=== PATIENT | male | born 1995 | race Caucasian/White ===

== ENCOUNTER 2017-10-30 19:58 | Emergency (ER) | payer OTHER ==
[~2017-10-30] VITALS: Ht 203.2 cm; Wt 158.8 kg
[~2017-10-30 19:58] MED LIST: AMOXICILLIN500 MG PO; AUGMENTIN 500 M1 TAB PO; BENTYL10 MG PO; MOTRIN400 MG PO; MOTRIN800 MG PO; NKHM; PREDNICOT20 MG PO; ZANTAC150 MG PO; ZOFRAN ODT4 MG SL
[2017-10-30] MEDS ORDERED: NAPROSYN500 MG PO (20:22)
[2017-10-30] MEDS ORDERED: CEFDINIR300 MG PO (20:22)
== END 2017-10-30 20:26 | disposition home or self-care (01) ==
LOC: ED 19:58
DX: H60.501 Unspecified acute noninfective otitis externa, right ear (principal); R03.0 Elevated blood-pressure reading, without diagnosis of hypertension

== ENCOUNTER 2018-01-29 22:50 | Emergency (ER) | payer OTHER ==
[~2018-01-29] VITALS: Ht 203.2 cm; Wt 158.8 kg
[~2018-01-29 22:50] MED LIST changes: +CEFDINIR300 MG PO; +NAPROSYN500 MG PO
[2018-01-29 23:53] LABS: ALBUMIN 3.7 gm/dl (3.1-4.5); ALKALINE PHOSPHATASE 104 U/L (45-117); BUN 11 mg/dl (7-24); CHLORIDE 106 mmol/L (98-107); CREATININE 1.08 mg/dL (0.70-1.30); POTASSIUM 4.1 mmol/L (3.5-5.1); SGOT/AST 42 IU/L (3-35); SGPT/ALT 59 U/L (12-78); SODIUM 142 mmol/L (136-145)
== END 2018-01-30 01:19 | disposition home or self-care (01) ==
LOC: ED 22:50
PROVIDERS: Emergency Medicine
DX: R42 Dizziness and giddiness (principal); R11.10 Vomiting, unspecified; I10 Essential (primary) hypertension; Z79.899 Other long term (current) drug therapy

== ENCOUNTER 2018-04-13 09:01 | Emergency (ER) | payer OTHER ==
[~2018-04-13] VITALS: Ht 203.2 cm; Wt 134.7 kg
[2018-04-13] MEDS ORDERED: AMLODIPINE BESY10 MG PO (09:21)
[2018-04-13] MEDS ORDERED: LISINOPRIL5 MG PO (09:21)
[2018-04-13 10:09] LABS: BASO # 0.1 10*3/uL (0.0-0.1); BASO % 0.9 % (0.0-1.0); EOS # 0.2 10*3/uL (0.0-0.4); EOS % 2.4 % (1.0-4.0); HEMATOCRIT 40.1 % (42.0-52.0); HEMOGLOBIN 13.5 g/dl (14.0-18.0); LYMPH # 2.7 10*3/uL (1.3-4.4); LYMPH % 26.4 % (27.0-41.0); MEAN CORPUSCULAR HGB 26.9 pg (27.0-31.0); MEAN CORPUSCULAR HGB CONC 33.7 g/dl (33.0-37.0); MEAN PLATELET VOLUME 8.6 fl (9.6-12.3); MONO # 0.6 10*3/uL (0.1-1.0); MONO % 6.1 % (3.0-9.0); NEUT # 6.4 10*3/uL (2.3-7.9); NEUT % 63.6 % (47.0-73.0); PLATELET COUNT AUTOMATED 332 10*3/uL (130-400); RED BLOOD COUNT 5.01 10*6/uL (4.50-5.90); RED CELL DISTRI WIDTH 14.1 % (0-14.5); WHITE BLOOD COUNT 10.1 10*3/uL (4.8-10.8)
[2018-04-13 10:24] LABS: ALBUMIN 3.6 gm/dl (3.1-4.5); ALKALINE PHOSPHATASE 90 U/L (45-117); BUN 10 mg/dl (7-24); CHLORIDE 105 mmol/L (98-107); CREATININE 0.98 mg/dL (0.70-1.30); POTASSIUM 3.7 mmol/L (3.5-5.1); SGOT/AST 28 IU/L (3-35); SGPT/ALT 44 U/L (12-78); SODIUM 140 mmol/L (136-145); TOTAL PROTEIN 7.8 gm/dL (6.4-8.2)
== END 2018-04-13 12:05 | disposition home or self-care (01) ==
LOC: ED 09:01
PROVIDERS: Nurse Practitioner
DX: S06.0X9A Concussion with loss of consciousness of unspecified duration, initial encounter (principal); H53.8 Other visual disturbances; Z79.899 Other long term (current) drug therapy; W01.0XXA Fall on same level from slipping, tripping and stumbling without subsequent striking against object, initial encounter; Y93.89 Activity, other specified; Y92.89 Other specified places as the place of occurrence of the external cause; Y99.8 Other external cause status

== ENCOUNTER 2018-10-09 11:22 | Emergency (ER) | payer OTHER ==
[~2018-10-09 11:22] MED LIST changes: +AMLODIPINE BESY10 MG PO; +LISINOPRIL5 MG PO
[2018-10-09] MEDS ORDERED: PROVENTIL HFA6.7 GM INH (13:26)
[2018-10-09] MEDS ORDERED: VIBRAMYCIN100 MG PO (13:26)
[2018-10-09] MEDS ORDERED: Motrin,Rufen800 MG PO (13:39)
== END 2018-10-09 14:09 | disposition home or self-care (01) ==
LOC: ED 11:22
DX: S40.012A Contusion of left shoulder, initial encounter (principal); Z79.899 Other long term (current) drug therapy; V47.5XXA Car driver injured in collision with fixed or stationary object in traffic accident, initial encounter; Y93.I9 Activity, other involving external motion; Y92.89 Other specified places as the place of occurrence of the external cause; Y99.8 Other external cause status

== ENCOUNTER 2018-11-05 11:48 | Emergency (ER) | payer OTHER ==
[~2018-11-05] VITALS: Ht 182.8 cm; Wt 163.3 kg
--- NOTE | ~2018-11-05 | EKG ---
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
--- NOTE | ~2018-11-05 | EKG ---
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
[~2018-11-05 11:48] MED LIST changes: +Motrin,Rufen800 MG PO; +PROVENTIL HFA6.7 GM INH; +VIBRAMYCIN100 MG PO
[2018-11-05 12:29] LABS: BASO # 0.1 10*3/uL (0.0-0.1); BASO % 0.8 % (0.0-1.0); EOS # 0.3 10*3/uL (0.0-0.4); HEMATOCRIT 42.5 % (42.0-52.0); HEMOGLOBIN 14.6 g/dl (14.0-18.0); LYMPH # 3.3 10*3/uL (1.3-4.4); LYMPH % 24.9 % (27.0-41.0); MEAN CELL VOLUME 81.1 fl (80.0-94.0); MEAN CORPUSCULAR HGB 27.9 pg (27.0-31.0); MEAN CORPUSCULAR HGB CONC 34.4 g/dl (33.0-37.0); MEAN PLATELET VOLUME 8.6 fl (9.6-12.3); MONO # 0.9 10*3/uL (0.1-1.0); MONO % 6.6 % (3.0-9.0); NEUT # 8.6 10*3/uL (2.3-7.9); NEUT % 65.2 % (47.0-73.0); PLATELET COUNT AUTOMATED 423 10*3/uL (130-400); RED BLOOD COUNT 5.24 10*6/uL (4.50-5.90); RED CELL DISTRI WIDTH 13.3 % (0-14.5); WHITE BLOOD COUNT 13.2 10*3/uL (4.8-10.8)
[2018-11-05 12:38] LABS: ACT PARTIAL THROMBO TIME 24.2 SECONDS (20.8-31.5); INTERNATIONAL NORM RATIO 0.9 (2.0-3.5)
[2018-11-05 13:20] LABS: ALBUMIN 3.6 gm/dl (3.1-4.5); ALKALINE PHOSPHATASE 96 U/L (45-117); BUN 13 mg/dl (7-24); CHLORIDE 110 mmol/L (98-107); CREATININE 1.02 mg/dL (0.70-1.30); POTASSIUM 4.5 mmol/L (3.5-5.1); SGOT/AST 29 IU/L (3-35); SGPT/ALT 41 U/L (12-78); SODIUM 142 mmol/L (136-145)
[2018-11-05 13:28] LABS: TROPONIN I < 0.015 ng/ml (<0.045)
== END 2018-11-05 16:39 | disposition home or self-care (01) ==
LOC: ED 11:48
PROVIDERS: Emergency Medicine
DX: F41.0 Panic disorder [episodic paroxysmal anxiety] (principal); R10.9 Unspecified abdominal pain; F17.200 Nicotine dependence, unspecified, uncomplicated; Z79.899 Other long term (current) drug therapy

== ENCOUNTER 2018-11-16 14:58 | Emergency (ER) | payer OTHER ==
[~2018-11-16] VITALS: Ht 203.2 cm; Wt 170.1 kg
[2018-11-16 15:35] LABS: BASO # 0.1 10*3/uL (0.0-0.1); BASO % 0.7 % (0.0-1.0); EOS # 0.2 10*3/uL (0.0-0.4); EOS % 1.7 % (1.0-4.0); HEMATOCRIT 42.9 % (42.0-52.0); HEMOGLOBIN 14.3 g/dl (14.0-18.0); LYMPH # 2.8 10*3/uL (1.3-4.4); LYMPH % 20.3 % (27.0-41.0); MEAN CELL VOLUME 82.3 fl (80.0-94.0); MEAN CORPUSCULAR HGB 27.4 pg (27.0-31.0); MEAN CORPUSCULAR HGB CONC 33.3 g/dl (33.0-37.0); MEAN PLATELET VOLUME 8.7 fl (9.6-12.3); MONO # 0.7 10*3/uL (0.1-1.0); MONO % 5.2 % (3.0-9.0); NEUT # 9.8 10*3/uL (2.3-7.9); NEUT % 71.3 % (47.0-73.0); PLATELET COUNT AUTOMATED 400 10*3/uL (130-400); RED BLOOD COUNT 5.21 10*6/uL (4.50-5.90); RED CELL DISTRI WIDTH 13.5 % (0-14.5); WHITE BLOOD COUNT 13.7 10*3/uL (4.8-10.8)
[2018-11-16 15:45] LABS: URINE AMPHETAMINES < 1000 (1000ng/ml); URINE BARBITURATES < 200 (200ng/ml); URINE BENZODIAZEPINES < 200 (200ng/ml); URINE CANNABINOIDS (THC) > 50 (50ng/ml); URINE COCAINE < 300 (300ng/ml); URINE METHADONE < 300 (300ng/ml); URINE OPIATES < 300 (300ng/ml)
[2018-11-16 15:46] LABS: URINE PHENCYCLIDINE < 25 (25ng/ml)
[2018-11-16 15:49] LABS: ALBUMIN 3.7 gm/dl (3.1-4.5); ALKALINE PHOSPHATASE 94 U/L (45-117); BUN 8 mg/dl (7-24); CHLORIDE 107 mmol/L (98-107); CREATININE 0.91 mg/dL (0.70-1.30); POTASSIUM 3.9 mmol/L (3.5-5.1); SGOT/AST 15 IU/L (3-35); SGPT/ALT 42 U/L (12-78); SODIUM 137 mmol/L (136-145); TOTAL PROTEIN 8.2 gm/dL (6.4-8.2)
== END 2018-11-16 16:52 | disposition home or self-care (01) ==
LOC: ED 14:58
PROVIDERS: Internal Medicine
DX: R42 Dizziness and giddiness (principal); R68.89 Other general symptoms and signs; T43.225A Adverse effect of selective serotonin reuptake inhibitors, initial encounter; Z79.2 Long term (current) use of antibiotics; Y92.89 Other specified places as the place of occurrence of the external cause

== ENCOUNTER 2019-01-31 12:58 | Emergency (ER) | payer OTHER ==
[~2019-01-31] VITALS: Ht 203.2 cm; Wt 165.6 kg
== END 2019-01-31 16:30 | disposition home or self-care (01) ==
LOC: ED 12:58
DX: S29.9XXA Unspecified injury of thorax, initial encounter (principal); R20.2 Paresthesia of skin; R07.81 Pleurodynia; Z79.899 Other long term (current) drug therapy; X50.0XXA Overexertion from strenuous movement or load, initial encounter; Y93.89 Activity, other specified; Y92.098 Other place in other non-institutional residence as the place of occurrence of the external cause; Y99.8 Other external cause status

== ENCOUNTER 2019-05-25 04:30 | Emergency (ER) | payer OTHER ==
[~2019-05-25] VITALS: Ht 203.2 cm; Wt 188.2 kg
== END 2019-05-25 05:45 | disposition home or self-care (01) ==
LOC: ED 04:30
DX: H10.32 Unspecified acute conjunctivitis, left eye (principal); Z79.899 Other long term (current) drug therapy

== ENCOUNTER 2019-07-01 04:51 | Inpatient (IN) | payer OTHER ==
[~2019-07-01] VITALS: Ht 203.2 cm; Wt 177.6 kg
[2019-07-01] VITALS (14 sets, daily range): BP systolic 113–164; BP diastolic 58–653
--- NOTE | ~2019-07-01 | CON ---
[place], [place] REPORT OF CONSULTATION NAME: JEROD WHALEY UNIT #: [id number] ROOM: [facility] DOCTOR: FARIBA CAREY MD BIRTHDATE: [birth year] DOS: 07/02/2019 CHIEF COMPLAINT: "I don't know why I did such a stupid thing." HISTORY OF PRESENT ILLNESS: This is a 23-year-old white male with a lengthy history of major depression, who was admitted to the ICU following a suicide attempt. The patient stated that he woke up at 3:00 a.m. and felt that life was no longer worth living and he took a handful of lisinopril, amlodipine, and ibuprofen and then subsequently went to work. When he made it into the parking lot of work, he realized that he had done a stupid thing and was very fearful and fretful and induced himself to vomit approximately 6-7 times feeling lightheaded and dizzy. However, the patient reached out to his mother who arranged for EMS to take the patient to the hospital and subsequently the patient was admitted to the Intensive Care Unit. The patient endorses depression for approximately 2 years. He has only tried Zoloft and then only for 3 weeks, but it was ineffective. He also endorses using marijuana and states that the marijuana will curb his anxiety, which in turn helps his depression. He states that sleep and appetite can both vary to being either too good or too poor. He has periods of marked anergia, anhedonia, hopeless and helpless feelings. He currently denies suicidal ideation and states he is very much willing to get help. He has never seen a psychiatrist or counselor. MENTAL STATUS: He is alert and oriented. Mood does seem to be depressed. He does show an appropriate amount of remorse for his action. There is no hypomania or micha. There is no gross psychosis. Short, intermediate, and long-term memory are intact. DIAGNOSIS: Major depression, single episode, severe. PLAN: I am going to start him on Cymbalta, which should impact positively on his mood and his anxiety. I will also have him call the office Thursday to get an appointment with Cherry Reese. We can also work with getting him hooked up with a counselor as well. FARIBA CAREY MD CM:CONSTR:REPORT OF CONSULTATION 0927 07/02/19 1130 interface
--- NOTE | ~2019-07-01 | EKG ---
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
--- NOTE | 2019-07-01 05:20 | NUR ---
PHYSICIAN AT BEDSIDE.
--- NOTE | 2019-07-01 05:23 | NUR ---
SPOKE WITH POSION CONTROL AND ADVISED TO MONITOR FOR HYPOTENSION AND BRADYCARDIA. OBTAIN EKG, TYLENOLE, AND ASA LEVELS AND TREAT WITH IV FLUIDS ON PRESSORS FOR HYPOTENSION AND TREAT BRADYCARDIA PRN.
[2019-07-01 05:27] LABS: BILIRUBIN NEGATIVE (NEGATIVE); BLOOD TRACE-INTACT (NEGATIVE); CLARITY CLEAR (CLEAR); COLOR YELLOW (YELLOW); GLUCOSE NEGATIVE (NEGATIVE); KETONE NEGATIVE (NEGATIVE); LEUKO ESTERASE NEGATIVE (NEGATIVE); NITRITE NEGATIVE (NEGATIVE); SPECIFIC GRAVITY >= 1.030 (1.005-1.030); UROBILINOGEN 0.2 E.U./dl (0.2-1.0)
[2019-07-01 05:34] LABS: BACTERIA 2+; MUCOUS 1+; RBC 0-2 rbc/hpf (0-2)
[2019-07-01 05:36] LABS: URINE AMPHETAMINES < 1000 (1000ng/ml); URINE BARBITURATES < 200 (200ng/ml); URINE BENZODIAZEPINES < 200 (200ng/ml); URINE CANNABINOIDS (THC) > 50 (50ng/ml); URINE COCAINE < 300 (300ng/ml); URINE METHADONE < 300 (300ng/ml); URINE OPIATES < 300 (300ng/ml)
[2019-07-01 05:41] LABS: URINE PHENCYCLIDINE < 25 (25ng/ml)
[2019-07-01 05:44] LABS: BASO # 0.1 10*3/uL (0.0-0.1); BASO % 0.7 % (0.0-1.0); EOS # 0.3 10*3/uL (0.0-0.4); EOS % 2.8 % (1.0-4.0); HEMATOCRIT 42.6 % (42.0-52.0); HEMOGLOBIN 13.7 g/dl (14.0-18.0); LYMPH # 2.5 10*3/uL (1.3-4.4); LYMPH % 23.4 % (27.0-41.0); MEAN CELL VOLUME 82.2 fl (80.0-94.0); MEAN CORPUSCULAR HGB 26.4 pg (27.0-31.0); MEAN CORPUSCULAR HGB CONC 32.2 g/dl (33.0-37.0); MEAN PLATELET VOLUME 8.7 fl (9.6-12.3); MONO # 0.7 10*3/uL (0.1-1.0); MONO % 6.1 % (3.0-9.0); NEUT # 7.1 10*3/uL (2.3-7.9); NEUT % 66.2 % (47.0-73.0); PLATELET COUNT AUTOMATED 347 10*3/uL (130-400); RED BLOOD COUNT 5.18 10*6/uL (4.50-5.90); RED CELL DISTRI WIDTH 13.9 % (0-14.5); WHITE BLOOD COUNT 10.7 10*3/uL (4.8-10.8)
[2019-07-01 05:59] LABS: ALBUMIN 3.5 gm/dl (3.1-4.5); ALKALINE PHOSPHATASE 87 U/L (45-117); BUN 11 mg/dl (7-24); CHLORIDE 109 mmol/L (98-107); CREATININE 0.95 mg/dL (0.70-1.30); POTASSIUM 3.7 mmol/L (3.5-5.1); SGOT/AST 8 IU/L (3-35); SGPT/ALT 45 U/L (12-78); SODIUM 139 mmol/L (136-145); TOTAL PROTEIN 7.7 gm/dL (6.4-8.2)
[2019-07-01 06:01] LABS: ACETAMINOPHEN (TYLENOL) < 5.0 ug/ml (10-30); ETHYL ALCOHOL < 3.0 mg/dl (<3); TROPONIN I < 0.015 ng/ml (<0.045)
--- NOTE | 2019-07-01 06:05 | NUR ---
SITTING UP IN BED AND IS MORE RELAXED. 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 BELONGINGS INCLUDING THESE ITEMS AND AOME OF HIS CLOTHES COLLECTED BY FAMILY.
--- NOTE | 2019-07-01 06:47 | NUR ---
ACTIVE SURVEILLANCE SWAB SENT TO THE LAB.
--- NOTE | 2019-07-01 07:02 | NUR ---
NURSE TO NURSE GIVEN.
--- NOTE | 2019-07-01 08:00 | NUR ---
A 23, admitted to ICCU, under the services of ANNETTE Penny DO with a diagnosis of DRUG OVERDOSE. Chief complaint is SUICIDE ATTEMPT. Patient arrived via wheel chair from ER. Monitor applied. Initial assessment completed. Vital signs taken and recorded. ANNETTE PENNY DO notified of admission to the unit. Orders received. See assessment for past medical history, medications and allergies. Patient and/or family oriented to unit. [facility] visitation policy reviewed. Clothing/patient valuable form completed. JOSE WEST
--- NOTE | 2019-07-01 10:27 | NUR ---
DR HOOVER IN TO SEE PT EARLIER.
--- NOTE | 2019-07-01 12:37 | NUR ---
POISON CONTROL CALLED R/T PT. UPDATED THEM ON PT'S CONDITION AND PLAN OF CARE. THEY ARE GOING TO CALL BACK LATER TO CHECK ON PT.
--- NOTE | 2019-07-01 15:28 | NUR ---
DONNIE MERAZ, SOCIAL SERVICE, IN TO SEE PT. SHE GAVE PT A PRINTOUT OF THERAPY CENTERS. SHE STATED PT IS OK FOR DISCHARGE TO HOME WHEN MEDICALLY STABLE.
--- NOTE | 2019-07-01 15:29 | NUR ---
met with client to assess for suicide risk, client is pleasant, cooperative, tearful. he reports to me his story, he said that this am he decided he could not take it anymore and took 3 handfulls of pills, drove to work at [employer] and then when he got to the parking lot, he realized he did not want to , so he said he called his mom and he made himself vomit 5-7x, he said that he has anxiety and racing thoughts, client reports that he went to college at [employer] on a football scholarship and then he decided after one year he just wanted to go to school and not play football, he quit and they did not tell him that he would then lose all of his scholarships, when he tried to reenter in the fall they told him he owed 47,000 dollars and now they wont release his transcripts to go anywhere else, he is very distressed by this and feels he made stupid decisions, he then got a job in the [employer] and he got an apt that became infested with bed bugs, so he had to throw all of his clothes away and he called his work to tell them that he could not come and they fired him, he now has another job, but he keeps ruminating about the choices he made. he denies suicidal ideation, stated that he does not want to live, he reports that he does get very anxious. explored with client that he could benefit from therapy and he agreed, he said he tries some meds from his pcp but did not like it, i did give client a resource list, he is not a present risk for self harm.
--- NOTE | 2019-07-01 17:20 | NUR ---
DR HOOVER UPDATED ON POISON CONTROL AND DONNIE MERAZ'S SUGGESTIONS. ORDER RECEIVED TO TRANSFER PT TO [facility]. AGRONOMY RESEARCH MANAGER AWARE.
[2019-07-02] VITALS: BP 151/82
[2019-07-02 04:00] VITALS: BP 107/69
[2019-07-02 06:34] LABS: BASO # 0.1 10*3/uL (0.0-0.1); BASO % 0.8 % (0.0-1.0); EOS # 0.4 10*3/uL (0.0-0.4); EOS % 3.2 % (1.0-4.0); HEMATOCRIT 41.2 % (42.0-52.0); HEMOGLOBIN 13.3 g/dl (14.0-18.0); LYMPH # 2.6 10*3/uL (1.3-4.4); LYMPH % 22.8 % (27.0-41.0); MEAN CELL VOLUME 82.7 fl (80.0-94.0); MEAN CORPUSCULAR HGB 26.7 pg (27.0-31.0); MEAN CORPUSCULAR HGB CONC 32.3 g/dl (33.0-37.0); MEAN PLATELET VOLUME 8.6 fl (9.6-12.3); MONO # 0.7 10*3/uL (0.1-1.0); MONO % 6.4 % (3.0-9.0); NEUT # 7.5 10*3/uL (2.3-7.9); NEUT % 65.9 % (47.0-73.0); PLATELET COUNT AUTOMATED 332 10*3/uL (130-400); RED BLOOD COUNT 4.98 10*6/uL (4.50-5.90); RED CELL DISTRI WIDTH 14.1 % (0-14.5); WHITE BLOOD COUNT 11.4 10*3/uL (4.8-10.8)
[2019-07-02 06:46] LABS: ALBUMIN 3.4 gm/dl (3.1-4.5); ALKALINE PHOSPHATASE 81 U/L (45-117); BUN 8 mg/dl (7-24); CHLORIDE 110 mmol/L (98-107); CREATININE 0.87 mg/dL (0.70-1.30); FREE T4 1.07 ng/dl (0.76-1.46); SGOT/AST 18 IU/L (3-35); SGPT/ALT 41 U/L (12-78); SODIUM 142 mmol/L (136-145); TOTAL PROTEIN 7.3 gm/dL (6.4-8.2)
--- NOTE | 2019-07-02 07:27 | NUR ---
Shift chart check completed.
[2019-07-02 07:44] LABS: ACT PARTIAL THROMBO TIME 25.8 SECONDS (20.0-32.1); INTERNATIONAL NORM RATIO 0.9 (2.0-3.5)
[2019-07-02 07:50] LABS: VITAMIN D, 25-HYDROXY 21.3 ng/mL (30-100)
[2019-07-02 08:00] VITALS: BP 115/79
--- NOTE | 2019-07-02 08:35 | NUR ---
DR BELLAMY CAME TO SEE PATIENT. [facility] CALLED TO REMIND THEM OF CONSULT.
--- NOTE | 2019-07-02 08:44 | NUR ---
CONSULT FOR DR CAREY PLACED HE CANNOT SEE THE PATIENT UNLESS HE IS SPECIFICALLY CONSULTED A GENERAL U CONSULT DOESN'T ALLOW HIM TO SEE THE PATIENT. DR MO HERE AND AWARE
--- NOTE | 2019-07-02 09:21 | NUR ---
DR CAREY HERE - OK TO DISCHARGE WHEN MEDICALLY STABLE & THEN TO FOLLOW UP WITH [facility] NEXT WEEK WITH FRANKLIN ACKERMAN - SCRIPT FOR CYMBALTA RECEIVED. DR HOOVER SPOKE WITH DR CAREY
--- NOTE | 2019-07-02 09:27 | NUR ---
POISON CONTROL CALLED AND SPOKE WITH RENUKA. PATIENT IS CLEAR FROM THEIR SIDE & OK TO GO. DR HOOVER HERE AND AWARE
[2019-07-02] MEDS ORDERED: AMLODIPINE BESY10 MG PO (11:17)
[2019-07-02] MEDS ORDERED: LISINOPRIL5 MG PO (11:17)
[2019-07-02] MEDS ORDERED: DULOXETINE HCL30 MG PO (11:17)
--- NOTE | 2019-07-02 11:33 | NUR ---
Hep Lock discontinued. Site asymptomatic. Pressure applied. Sterile dressing applied. Discharge instructions reviewed with patient/family. Patient receptive and verbalizes understanding. Follow-up care arranged. Written instructions given to patient/family. PATIENT [id number] OUT SHANTI MARCUS
== END 2019-07-02 11:30 | disposition home or self-care (01) | DRG 918 ==
LOC: ED 04:51 → EDHOLD 06:37 → ICCU 07:47
PROVIDERS: Internal Medicine; Student in an Organized Health Care Education/Training Program; ADMIT Internal Medicine
PROC: 5A09357 Assistance with Respiratory Ventilation, Less than 24 Consecutive Hours, Continuous Positive Airway Pressure (ICD-10-PCS; principal; 2019-07-02)
DX: T46.4X2A Poisoning by angiotensin-converting-enzyme inhibitors, intentional self-harm, initial encounter (principal); F32.2 Major depressive disorder, single episode, severe without psychotic features; Z68.41 Body mass index [BMI] 40.0-44.9, adult; T46.1X2A Poisoning by calcium-channel blockers, intentional self-harm, initial encounter; T39.312A Poisoning by propionic acid derivatives, intentional self-harm, initial encounter; I10 Essential (primary) hypertension; G47.33 Obstructive sleep apnea (adult) (pediatric); T14.91XA Suicide attempt, initial encounter; E66.01 Morbid (severe) obesity due to excess calories; F17.210 Nicotine dependence, cigarettes, uncomplicated; D64.9 Anemia, unspecified; R73.9 Hyperglycemia, unspecified; R80.9 Proteinuria, unspecified; R31.9 Hematuria, unspecified; R00.1 Bradycardia, unspecified; F41.9 Anxiety disorder, unspecified; I95.9 Hypotension, unspecified; Y92.89 Other specified places as the place of occurrence of the external cause; Z79.899 Other long term (current) drug therapy; Z82.49 Family history of ischemic heart disease and other diseases of the circulatory system; Z83.3 Family history of diabetes mellitus; Z71.6 Tobacco abuse counseling

== ENCOUNTER 2020-04-19 14:32 | Emergency (ER) | payer OTHER ==
[~2020-04-19 14:32] MED LIST changes: +DULOXETINE HCL30 MG PO
[2020-04-19 15:55] LABS: BASO # 0.1 10*3/uL (0.0-0.1); BASO % 0.6 % (0.0-1.0); EOS # 0.2 10*3/uL (0.0-0.4); EOS % 1.7 % (1.0-4.0); LYMPH # 2.2 10*3/uL (1.3-4.4); LYMPH % 17.5 % (27.0-41.0); MEAN CELL VOLUME 80.4 fl (80.0-94.0); MEAN CORPUSCULAR HGB CONC 34.9 g/dl (33.0-37.0); MEAN PLATELET VOLUME 9.2 fl (9.6-12.3); MONO # 0.6 10*3/uL (0.1-1.0); NEUT # 9.5 10*3/uL (2.3-7.9); NEUT % 74.6 % (47.0-73.0); PLATELET COUNT AUTOMATED 353 10*3/uL (130-400); RED BLOOD COUNT 4.85 10*6/uL (4.50-5.90); RED CELL DISTRI WIDTH 13.2 % (0-14.5); WHITE BLOOD COUNT 12.7 10*3/uL (4.8-10.8)
[2020-04-19 16:28] LABS: ALBUMIN 3.2 gm/dl (3.1-4.5); ALKALINE PHOSPHATASE 132 U/L (45-117); BUN 12 mg/dl (7-24); CHLORIDE 103 mmol/L (98-107); CREATININE 1.28 mg/dL (0.70-1.30); POTASSIUM 3.9 mmol/L (3.5-5.1); SGOT/AST 38 IU/L (3-35); SGPT/ALT 50 U/L (12-78); SODIUM 136 mmol/L (136-145); TOTAL PROTEIN 8.1 gm/dL (6.4-8.2)
[2020-04-19] MEDS ORDERED: CORTISPORIN SUS10 ML OT (18:59)
[2020-04-19] MEDS ORDERED: CIPRO500 MG PO (18:59)
== END 2020-04-19 19:45 | disposition home or self-care (01) ==
LOC: ED 14:32
PROVIDERS: Nurse Practitioner Family
DX: H60.91 Unspecified otitis externa, right ear (principal); R73.9 Hyperglycemia, unspecified; I10 Essential (primary) hypertension

== ENCOUNTER 2020-05-24 10:17 | Inpatient (IN) | payer OTHER ==
[~2020-05-24] VITALS: Ht 203.2 cm; Wt 172.0 kg
[~2020-05-24 10:17] MED LIST changes: +CIPRO500 MG PO; +CORTISPORIN SUS10 ML OT
[2020-05-24 10:22] VITALS: BP 160/104
--- NOTE | 2020-05-24 11:10 | NUR ---
PT. HAS AN ABRASION ON RIGHT CONRAD.
[2020-05-24 11:19] LABS: BACTERIA TRACE; BILIRUBIN NEGATIVE (NEGATIVE); BLOOD 2+ (NEGATIVE); CLARITY SL CLOUDY (CLEAR); COLOR YELLOW (YELLOW); GLUCOSE 3+ (NEGATIVE); KETONE 3+ (NEGATIVE); LEUKO ESTERASE NEGATIVE (NEGATIVE); NITRITE NEGATIVE (NEGATIVE); UROBILINOGEN 0.2 E.U./dl (0.2-1.0)
[2020-05-24 11:20] LABS: HEMATOCRIT 39.8 % (42.0-52.0); MEAN CELL VOLUME 79.3 fl (80.0-94.0); MEAN PLATELET VOLUME 9.7 fl (9.6-12.3); PLATELET COUNT AUTOMATED 348 10*3/uL (130-400); RED BLOOD COUNT 5.02 10*6/uL (4.50-5.90); RED CELL DISTRI WIDTH 13.8 % (0-14.5); WHITE BLOOD COUNT 11.3 10*3/uL (4.8-10.8)
[2020-05-24 11:32] LABS: ALBUMIN 3.5 gm/dl (3.1-4.5); ALKALINE PHOSPHATASE 144 U/L (45-117); BUN 15 mg/dl (7-24); CHLORIDE 101 mmol/L (98-107); CREATININE 1.01 mg/dL (0.70-1.30); SGOT/AST 21 IU/L (3-35); SGPT/ALT 43 U/L (12-78); SODIUM 136 mmol/L (136-145)
--- NOTE | 2020-05-24 11:32 | NUR ---
PT. STATED PAIN WAS RELIEVED WITH DILAUDID.
[2020-05-24 11:33] LABS: LIPASE 858 U/L (73-393)
[2020-05-24 11:43] LABS: MEAN CORPUSCULAR HGB 26.3 pg (27.0-31.0); MEAN CORPUSCULAR HGB CONC 33.2 g/dl (33.0-37.0)
[2020-05-24 11:44] LABS: MICROCYTOSIS SLIGHT; PLATELET SUFFICIENCY NORMAL (NORMAL); TOTAL CELLS COUNTED 100 #CELLS
[2020-05-24 12:17] VITALS: BP 159/94
[2020-05-24 12:30] VITALS: BP 148/85
--- NOTE | 2020-05-24 12:30 | NUR ---
Time: 0 A 24 year old MALE admitted to 5E under services of IVETT BONE DO. Pt. arrived via wheel chair from ER. Chief complaint: ABDOMINAL PAIN. ABRASION TO RIGHT CONRAD. MEASUREMENTS AND PICTURES TAKEN. BETHANY TURCIOS
--- NOTE | 2020-05-24 13:03 | NUR ---
DR BELLAMY NOTIFIED OF UPDATED MED REC.
--- NOTE | 2020-05-24 13:37 | NUR ---
SPOKE WITH DR BELLAMY ABOUT PATIENTS BLOOD GLUCOSE OF 400 WITHOUT INTERVENTION. STATES HE IS PUTTING IN ORDERS AT THIS TIME.
--- NOTE | 2020-05-24 14:08 | NUR ---
MORPHINE ADMINISTERED FOR PT C/O 09/08 ABDOMINAL PAIN. PT STATING THAT THE PAIN IS IN THE EPIGASTRIC REGION AND IS "CRAMPING, AND PULSATING". WILL CONTINUE TO MONITOR AND REASSESS.
--- NOTE | 2020-05-24 14:35 | NUR ---
PT STATES THE MORPHINE DID HELP RELIEVE SOME PAIN BUT IT IS STILL PRESENT. WILL CONTINUE TO MONITOR.
--- NOTE | 2020-05-24 15:42 | NUR ---
SPOKE WITH DR BELLAMY REGARDING PATIENTS WORSENING ABDOMINAL PAIN. PT STATES IT IS NOW "IN ALL FOUR QUADRANTS AND RADIATING TO HIS BACK". MORPHINE ADMINISTERED AT 1408, NOT DUE AT THIS TIME. AWAITING NEW ORDERS.
--- NOTE | 2020-05-24 15:54 | NUR ---
DIALUDID ADMINISTERED FOR PT C/O 09/08 ABDOMINAL PAIN THAT RADIATES TO THE CENTER OF HIS BACK. THRASHING IN BED, STATES THAT THE PAIN IS "REALLY BAD". WILL REASSESS AND CONTINUE TO MONITOR.
[2020-05-24 16:00] VITALS: BP 158/91
--- NOTE | 2020-05-24 16:19 | NUR ---
PATIENT SITTING ON THE SIDE OF THE BED. APPEARS MORE COMFORTABLE. STATES THE DILAUDID WAS EFFECTIVE. WILL MONITOR.
--- NOTE | 2020-05-24 17:45 | NUR ---
DILAUDID ADMINISTERED FOR PT C/O GENERALIZED ABDOMINAL PAIN THAT RADIATES TO HIS BACK. PT DESCRIBES IT "SHARP, STABBING" LIKE PAIN. WILL CONTINUE TO MONITOR AND REASSESS.
--- NOTE | 2020-05-24 18:19 | NUR ---
PT APPEARS MORE RELAXED. STATES THAT THE DILAUDID IS EFFECTIVE BUT PAIN RETURNS AFTER A COUPLE HOURS AND IS INTENSE IT WAS PRIOR TO RECEIVING IT. WILL CONTINUE TO MONITOR.
--- NOTE | 2020-05-24 18:20 | NUR ---
SPOKE TO DR BELLAMY, PTS MOM WOULD LIKE TO SPEAK WITH SOMEONE REGARDING POC. DR BELLAMY UP TO FLOOR AT THIS TIME AND IN PT ROOM.
[2020-05-24 20:00] VITALS: BP 128/76
--- NOTE | 2020-05-24 20:36 | NUR ---
24 HR chart check completed.
--- NOTE | 2020-05-24 20:56 | NUR ---
PATIENT DRAMATICALLY HOLDING ABD AND BREATHING HEAVILY. RESPIRATIONS EASY. LUNGS DIMINISHED, CLEAR. PULSE OX 96% RA. ABD SOFTLY OBESE WITH NORMO BOWEL SOUNDS. REQUESTED AND RECEIVED DILAUDID IV PER PRN ORDER FOR COMPLAINTS OF EPIGASTRIC PAIN RATING AN 8. IV FLUIDS MAINTAINED. CALL LIGHT WITHIN REACH. WILL MONITOR
--- NOTE | 2020-05-24 21:30 | NUR ---
MEDS EFFECTIVE. TALKING ON PHONE, NO DISTRESS NOTED. NO FURTHER VOICED COMPLAINTS
[2020-05-25] VITALS: BP 152/79
--- NOTE | 2020-05-25 00:36 | NUR ---
AGAIN DRAMATIC, C/O ABD PAIN RATING AN 8. MEDICATED WITH DILAUDID IV PER PRN ORDER. CALL LIGHT WITHIN REACH. WILL MONITOR FOR EFFECTIVENESS
--- NOTE | 2020-05-25 01:00 | NUR ---
MEDS APPEAR EFFECTIVE. SLEEPING WITH C-PAP IN USE. CALL LIGHT WITHIN REACH. IV FLUIDS MAINTAINED
--- NOTE | 2020-05-25 04:04 | NUR ---
AWAKENS, C/O EPIGASTRIC PAIN RATING AN 8. MEDICATED WITH DILAUDID IV PER PRN ORDER. WILL MONITOR
--- NOTE | 2020-05-25 05:00 | NUR ---
MEDS EFFECTIVE. SLEEPING.
[2020-05-25] MEDS ORDERED: LISINOPRIL20 MG PO (05:28)
[2020-05-25 06:28] LABS: HEMATOCRIT 37.9 % (42.0-52.0); MEAN PLATELET VOLUME 9.5 fl (9.6-12.3); PLATELET COUNT AUTOMATED 285 10*3/uL (130-400); RED BLOOD COUNT 4.68 10*6/uL (4.50-5.90); RED CELL DISTRI WIDTH 14.1 % (0-14.5); WHITE BLOOD COUNT 14.1 10*3/uL (4.8-10.8)
[2020-05-25 06:48] LABS: HDL CHOLESTEROL 25 mg/dl (40-60); TRIGLYCERIDES 967 mg/dl (<150)
--- NOTE | 2020-05-25 07:24 | NUR ---
JEROD WHALEY [id number] Please refer to the physician's history and physical for past medical history, comorbid conditions, and allergies. Diagnosis: DIABETES MELLITUS WITH HYPERGLYCEMIA PANCREATITIS Xavier Score: 22,LOW OR NO RISK WOUND DESCRIPTIONS: Wound Number: 1 Location of the wound: right anterior saldana medial Type of wound: abrasion Thickness: Partial Size: 2.5cm x 1.8cm x <0.1cm Tunneling: none Undermining: none Sinus Tract: none Presence of Exudate: none Amount: None Color: Red, brown Odor: None Periwound Skin Appearance: Normal Wound edges: approximated Pain (associated with wound): none at time of assessment How does patient state this happened? pt states he fell off the pool ladder about 3 days ago Wound Number: 2 Location of the wound: right anterior saldana lateral Type of wound: abrasion Thickness: Partial Size: 0.5cm x 0.6cm x <0.1cm Tunneling: none Undermining: none Sinus Tract: none Presence of Exudate: none Amount: None Color: Red, brown Odor: None Periwound Skin Appearance: Normal Wound edges: approximated Pain (associated with wound): none at time of assessment How does patient state this happened? pt states he fell off the [employer] ladder about 3 days ago Surface the patient is resting on: Position Pro SKIN PREVENTION RECOMMENDATION: 1. Pressure redistribution support surface as appropriate 2. Elevate heels 3. Remove boots/TEDS every shift and reapply 4. Head of bed 30 degrees as tolerated 5. Assess nutrition and hydration 6. Manage moisture 7. Avoid the use of containment devices while in bed 8. Use absorptive products on surfaces limit layers of linens on bed 9. Turn and reposition every 1-2 hours in bed and every 1 hour in chair as tolerated 10. Weight shifts every 15 minutes while up in chair 11. Offloading with pillows or device to keep heels elevated off bed 12. Monitor skin at least every shift 13. Inspect under medical devices twice a day WOUND TREATMENT RECOMMENDATIONS: Partial thickness guidelines: Cleanse right saldana medial and right saldana lateral with nss and apply sureprep around the wound hydrogel to wound bed and cover with optifoam gentle every 2 days and prn for soiling. Patient states he will care for this area upon his return home and doesn't wish to follow up in an outpatient setting at this time.
[2020-05-25 07:25] LABS: MEAN CORPUSCULAR HGB 26.5 pg (27.0-31.0); MEAN CORPUSCULAR HGB CONC 32.7 g/dl (33.0-37.0)
--- NOTE | 2020-05-25 07:30 | NUR ---
JEROD WHALEY [id number] Please refer to the physician's history and physical for past medical history, comorbid conditions, and allergies. Diagnosis: DIABETES MELLITUS WITH HYPERGLYCEMIA PANCREATITIS Xavier Score: 22,LOW OR NO RISK WOUND DESCRIPTIONS: Wound Number: 1 Location of the wound: right saldana medial aspect Type of wound: abrasion Thickness: Partial Size: 2.5cm x 1.8cm x 0.1cm Tunneling: none Undermining: none Sinus Tract: none Presence of Exudate: none Amount: None Color: Red, brown Odor: None Periwound Skin Appearance: Normal Wound edges: approximated Pain (associated with wound): none at time of assessment How does patient state this happened? pt states he fell off pool ladder three days ago Wound Number: 2 Location of the wound: right saldana lateral aspect Type of wound: abrasion Thickness: Partial Size: 0.5cm x 0.6cm x <0.1cm Tunneling: none Undermining: none Sinus Tract: none Presence of Exudate: none Amount: None Color: Red, brown Odor: None Periwound Skin Appearance: Normal Wound edges: approximated Pain (associated with wound): none at time of assessment How does patient state this happened? pt states he fell off [employer] three days ago Surface the patient is resting on: Position Pro SKIN PREVENTION RECOMMENDATION: 1. Pressure redistribution support surface as appropriate 2. Elevate heels 3. Remove boots/TEDS every shift and reapply 4. Head of bed 30 degrees as tolerated 5. Assess nutrition and hydration 6. Manage moisture 7. Avoid the use of containment devices while in bed 8. Use absorptive products on surfaces limit layers of linens on bed 9. Turn and reposition every 1-2 hours in bed and every 1 hour in chair as tolerated 10. Weight shifts every 15 minutes while up in chair 11. Offloading with pillows or device to keep heels elevated off bed 12. Monitor skin at least every shift 13. Inspect under medical devices twice a day WOUND TREATMENT RECOMMENDATIONS: Partial thickness guidelines: Cleanse right saldana medial, right saldana lateral with nss and apply sureprep around the wound hydrogel to wound bed and cover with optifoam gentle every 2 days and prn for soiling. Patient states he will take care of these area when he is discharged and doesn't wish to follow up in an outpatient setting at this time.
[2020-05-25 07:34] LABS: PLATELET SUFFICIENCY NORMAL (NORMAL); TOTAL CELLS COUNTED 100 #CELLS
--- NOTE | 2020-05-25 07:53 | NUR ---
Dr. Maciel notified of wound care recommendations.
[2020-05-25 07:54] LABS: ALBUMIN 2.9 gm/dl (3.1-4.5); ALKALINE PHOSPHATASE 117 U/L (45-117); BUN 8 mg/dl (7-24); CHLORIDE 103 mmol/L (98-107); SGOT/AST 16 IU/L (3-35); SGPT/ALT 31 U/L (12-78); SODIUM 137 mmol/L (136-145); TOTAL PROTEIN 7.9 gm/dL (6.4-8.2)
[2020-05-25 07:55] LABS: LIPASE 1531 U/L (73-393)
[2020-05-25 07:57] LABS: CHOLESTEROL 106 mg/dL (<200)
[2020-05-25 08:00] VITALS: BP 135/66
--- NOTE | 2020-05-25 09:00 | NUR ---
Adaptive Physical Educator in to talk to patient. Patient states lives at home with family. There are 3 steps in the home. Physician: uli cuevas Pharmacy: [facility] health services: none Patient's level of ADLs: INDEPENDENT Patient has working utilities: all working DME: none Follow-up physician's appointment after d/c: will be made by hospitalist nurse director upon discharge Does patient want to access PORTAL?: no Discharge plan discussed with patient, he lives at home with family, he is independent in adls and ambulation, works, drives, he states he will return home with discharged and denies any home needs, case management will follow. he states family will transport him home when discharged. BRIGETTE MANNING
[2020-05-25 12:00] VITALS: BP 157/92
--- NOTE | 2020-05-25 13:28 | NUR ---
PATIENT C/O 10 OUT OF [address] BELLAMY ORDERRED TO GIVE NORCO ALONG WITH DILAUDID (PER ORDER) PT COMPLAIN OF WORSE ABD PAIN AFTER NORCO. HE STATES HE WILL CONTINUE WITH THE DILAUDID. WHICH PROVIDES COMFOR FOR APPROX 1 HOUR AFTER PERSCRIBED DOSE.
--- NOTE | 2020-05-25 14:34 | NUR ---
MEDICATED WITH DILAUDID 1MG IV FOR COMPLAINTS OF LEFT SIDED ABDOMINAL PAIN. RATES PAIN A 10 ON A PAIN SCALE OF 1-10
[2020-05-25 16:00] VITALS: BP 144/76
--- NOTE | 2020-05-25 19:00 | NUR ---
ASSUMED CARE FOR THIS PT AT THIS TIME. C/O MID EPIGASTRIC PAIN 04/08. BS X4 HYPO. PT TEACHING GIVEN ON PRN DILAUDID TIMES. CALL LIGHT IN REACH.
[2020-05-25 20:00] VITALS: BP 141/67
--- NOTE | 2020-05-25 21:42 | NUR ---
PT AWOKEN FOR INSULIN. PT C/O MID EPIGASTRIC PAIN 05/09. MEDICATED W/IVP DILAUDID. PT SNORING DURING ADMINISTRATION. WILL MONITOR FOR EFFECTIVENESS. CALL LIGHT IN REACH.
--- NOTE | 2020-05-25 22:40 | NUR ---
PT RESTING QUIETLY IN BED W/EYES CLOSED. NO S/S OF DISTRESS NOTED. PRN DILAUDID EFFECTIVE FOR PAIN RELIEF.
--- NOTE | 2020-05-25 23:50 | NUR ---
PT MEDICATED W/IVP DILAUDID FOR C/O MID EPIGASTRIC PAIN 07/09. PT SLEEPING IN BED W/CPAP ON AND EYES CLOSED DURING ADMINISTRATION. CALL LIGHT IN REACH.
[2020-05-26] VITALS: BP 136/50
--- NOTE | 2020-05-26 00:18 | NUR ---
PATIENT PLACED HIMSELF ON OUR V30 BIPAP, CHECKED AT THE 11 O'CLOCK HOUR.
--- NOTE | 2020-05-26 02:51 | NUR ---
PT MEDICATED W/IVP DILAUDID PER PT REQUEST FOR C/O MID EPIGASTRIC PAIN. PT AWAKE IN BED.
--- NOTE | 2020-05-26 03:50 | NUR ---
PT RESTING QUIETLY IN BED W/EYES CLOSED. NO S/S OF DISTRESS NOTED. CALL LIGHT IN REACH.
--- NOTE | 2020-05-26 06:15 | NUR ---
PT MOANING IN BED. C/O EPIGASTRIC BURNING. SCHEDULED IV PROTONIX GIVEN AND MILK GIVEN TO PT. PT CONTINUES TO C/O BURNING PAIN. MEDICATED W/IVP DILAUDID.
[2020-05-26 06:22] LABS: BASO # 0.1 10*3/uL (0.0-0.1); BASO % 0.3 % (0.0-1.0); EOS % 0.1 % (1.0-4.0); HEMATOCRIT 38.4 % (42.0-52.0); LYMPH # 1.6 10*3/uL (1.3-4.4); LYMPH % 9.7 % (27.0-41.0); MEAN CELL VOLUME 83.5 fl (80.0-94.0); MEAN CORPUSCULAR HGB 27.6 pg (27.0-31.0); MEAN CORPUSCULAR HGB CONC 33.1 g/dl (33.0-37.0); MEAN PLATELET VOLUME 9.9 fl (9.6-12.3); MONO # 1.2 10*3/uL (0.1-1.0); MONO % 7.5 % (3.0-9.0); NEUT # 13.1 10*3/uL (2.3-7.9); NEUT % 81.7 % (47.0-73.0); PLATELET COUNT AUTOMATED 306 10*3/uL (130-400); RED CELL DISTRI WIDTH 14.6 % (0-14.5)
[2020-05-26 07:12] LABS: ALBUMIN 2.2 gm/dl (3.1-4.5); ALKALINE PHOSPHATASE 90 U/L (45-117); BUN 11 mg/dl (7-24); CHLORIDE 103 mmol/L (98-107); CREATININE 1.61 mg/dL (0.70-1.30); LIPASE 2281 U/L (73-393); POTASSIUM 4.9 mmol/L (3.5-5.1); SGOT/AST 45 IU/L (3-35); SGPT/ALT 33 U/L (12-78); SODIUM 134 mmol/L (136-145); TOTAL PROTEIN 7.5 gm/dL (6.4-8.2)
[2020-05-26 08:00] VITALS: BP 151/54
--- NOTE | 2020-05-26 08:10 | NUR ---
PRN DILAUDID GIVEN FOR C/O MID EPIGASTRIC ABD PAIN RAITING 07/09. PT VISIBLY UNCOMFORTABLE, FACIAL GRIMACING, PRN DOLULAX GIVEN FOR CONSTIPATION PER PT NO BM FOR 3/4 DAYS ABD SOFT HYPOACTIVE
--- NOTE | 2020-05-26 08:31 | NUR ---
NOTIFIED OF ELEVATED HR, PT DENIES SYMPTOMS
--- NOTE | 2020-05-26 09:00 | NUR ---
PER PT PRN DILAUDID WAS EFFECTIVE FOR PAIN
--- NOTE | 2020-05-26 10:30 | NUR ---
PRN DILAUDID GIVEN FOR C/O OF PAIN MID EPIGASTRIC RATING 8/10
--- NOTE | 2020-05-26 11:00 | NUR ---
PT IN CHAIR RESTING WITH EYES CLOSED NO COMPLAINTS AT THIS TIME MOTHER AT BEDSIDE
--- NOTE | 2020-05-26 11:30 | NUR ---
PT DEMONSTRATED PROPER SQ INJECTION OF INUSLIN
--- NOTE | 2020-05-26 12:15 | NUR ---
PT C/O OF MID EPIGASTRIC PAIN AGAIN 8/10 STABBING PRN DILAUDID GIVEN PER ORDER
--- NOTE | 2020-05-26 12:15 | NUR ---
AT BEDSIDE, AWARE OF ELAVTED HEART RATE OK TO PUT ON SLIP LASTER
--- NOTE | 2020-05-26 12:43 | NUR ---
NOTIFIED OF CONSULT
--- NOTE | 2020-05-26 13:39 | NUR ---
THE PATIENT IS A 24 YEAR OLD MALE. HIS VITALS WERE TEMP-98.2, PULSE-128, RESP-20, BG-377. DURING HE PT COMPLAINED OF MUCOSAL MEMBRANES ARE DRY. HE WAS WHEEZING AFTER WAKING UP, SLIGHT SOB ON EXERTION. O2 sat- 96% on room air. No edema noted on lower extremities, skin was cool to the touch. No stated issues with . Heart sounds were regular, with tachycardia. 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 Pt was A+O x4 the patient has been constipation for full duration before assesssment. Bowel sounds were hypoactive. The patient caomplained of 7/10 on pain scale during and after abdominal assessment, pain located in RUQ, pt described pain as stabbing. pain was reported to nurse. student was in the room during teaching, and participating Clemente Kimbrough /Laureano MONSALVE
--- NOTE | 2020-05-26 14:46 | NUR ---
Checked on pt, he was in chair. He asked for pain meds, notified nurse of request. Binta student nurse/Marquis MONSALVE
--- NOTE | 2020-05-26 15:00 | NUR ---
PT RESTING IN BED WITH EYES CLOSED AT THIS TIME, NO S/S OF DISTRESS/PAIN MOTHER AT BEDSIDE, MOTHER INFORMED OF PATIENT BEING TRANSFERRED TO ICU FOR CLOSER MONITORING
--- NOTE | 2020-05-26 15:02 | NUR ---
NORMAL SALINE INCREASED TO 200CC/HR FOR THE NEXT 12 HOURS
[2020-05-26 15:21] LABS: BASO # 0.1 10*3/uL (0.0-0.1); BASO % 0.3 % (0.0-1.0); EOS % 0.1 % (1.0-4.0); HEMATOCRIT 36.4 % (42.0-52.0); LYMPH # 1.2 10*3/uL (1.3-4.4); LYMPH % 7.6 % (27.0-41.0); MEAN CELL VOLUME 81.8 fl (80.0-94.0); MEAN CORPUSCULAR HGB 27.2 pg (27.0-31.0); MEAN CORPUSCULAR HGB CONC 33.2 g/dl (33.0-37.0); MEAN PLATELET VOLUME 9.6 fl (9.6-12.3); MONO # 1.2 10*3/uL (0.1-1.0); NEUT # 12.9 10*3/uL (2.3-7.9); NEUT % 83.4 % (47.0-73.0); PLATELET COUNT AUTOMATED 301 10*3/uL (130-400); RED BLOOD COUNT 4.45 10*6/uL (4.50-5.90); RED CELL DISTRI WIDTH 14.6 % (0-14.5); WHITE BLOOD COUNT 15.4 10*3/uL (4.8-10.8)
[2020-05-26 15:37] LABS: ALBUMIN 2.1 gm/dl (3.1-4.5); CREATININE 2.12 mg/dL (0.70-1.30); POTASSIUM 4.2 mmol/L (3.5-5.1); TOTAL PROTEIN 7.3 gm/dL (6.4-8.2)
[2020-05-26 16:00] VITALS: BP 131/49
--- NOTE | 2020-05-26 16:00 | NUR ---
RECEIVED FROM 5E AFTER HAVING STAT CT SCAN OF ABDOMEN DONE. MOTHER AT BEDSIDE. CALL LIGHT TO PATIENT. IV FLUIDS INFUSING PER ORDER. REINFORCED PT NPO EXCEPT FOR ICECHIPS. SEE ALL APPROPRIATE INTERVENTIONS.
--- NOTE | 2020-05-26 16:03 | NUR ---
PT TRANSFERRED TO ICU, PT STABLE AT THIS TIME, [id number]
--- NOTE | 2020-05-26 16:15 | NUR ---
PT HAD DILAUDID AT 1530 AND IS CURRENTLY RESTING EASILY WITH HIS FACE RELAXED AND EYES CLOSED.
--- NOTE | 2020-05-26 17:05 | NUR ---
DR KHAN UPDATED ON CT RESULTS AND REVIEWED LATEST LABS DRAWN AT 1500. NO NEW ORDERS.
--- NOTE | 2020-05-26 17:31 | NUR ---
DILAUDID 1MG IV SLOWLY FOR ABDOMINAL PAIN "9"/10. ON QUESTIONING ABOUT RELIEF HE SAYS THE BEST RELIEF IS "ABOUT A 2 OR 3".
--- NOTE | 2020-05-26 17:55 | NUR ---
EYES CLOSED, FACE RELAXED. DILAUDID APPEARS EFFECTIVE.
--- NOTE | 2020-05-26 19:47 | NUR ---
PATIENT MEDICATED WITH DILUADID PER DR ORDERS, COMPLAINS OF 10/10 PAIN TO HIS ABDOMEN SPECIFICALLY IN THE LEFT AND RIGHT UPPER QUADS. PATIENT IS GRIMACING AND IS VERY RESTLESS IN THE BED, RN WILL MONITOR FOR RELIEF.
[2020-05-26 20:00] VITALS: BP 124/43
--- NOTE | 2020-05-26 21:33 | NUR ---
DILUADID GIVEN PER DR ORDER, PATIENT CALLED OUT, IS BREATHING HEAVY AND HEARTRATE HAS INCREASED INTO THE 130'S. STATES HIS PAIN IS "EXCRUTIATING" AND HE NEEDS MEDICATIONS RN WILL MONITOR FOR RELIEF OF PAIN WITH THIS DOSE OF MEDICINE
--- NOTE | 2020-05-26 23:45 | NUR ---
UPON CHECKING ON PATIENT, PATIENT WAS FOUND LAYING ON HIS BACK SIDEWAYS IN THE BED. PATIENT STATES THAT THIS HELPS WITH PAIN. PER REQUEST PATIENT WAS ASSISTED INTO A CHAIR AT THE BEDSIDE. STATES THIS FEELS A LITTLE BIT BETTER THAN LAYING IN THE BED. PATIENT ALSO REQUESTING PAIN MEDICATION TO EASE PAIN IN THE ABDOMEN. PRN DILUADID GIVEN AT THIS TIME. CPAP WAS APPLIED BY RESPIRATORY THERAPIST PER PATIENT REQUEST AT THIS TIME ALSO. RN WILL CONTINUE TO MONITOR
[2020-05-27] VITALS (8 sets, daily range): BP systolic 96–155; BP diastolic 35–83
--- NOTE | 2020-05-27 00:30 | NUR ---
PATIENT STATES PAIN MEDS MINIMALLY EFFECTIVE
--- NOTE | 2020-05-27 02:16 | NUR ---
PATIENT CALLED RN INTO ROOM, HAS REMOVED CPAP ON OWN AND IS REQUESTING TO GET BACK INTO BED. STATES HE ALSO HAS TO URINATE AND IS REQUESTING ICE CHIPS. REQUESTING PAIN MEDICATION. STATES IT 08/09 ALL OVER ABDOMEN. MEDICATED WITH DILUADID PER ORDER. RN WILL CONTINUE TO MONITOR
--- NOTE | 2020-05-27 02:23 | NUR ---
PATIENT ADMINISTERED IV ZOFRAN R/T NAUSEA AND DRY HEAVES AFTER RECIEVING DILUADID DOSE EARLIER. RN WILL CONTINUE TO MONITOR
--- NOTE | 2020-05-27 03:00 | NUR ---
EARLIER MEDICATION SEEMS TO HAVE BEEN EFFECTIVE, PATIENT IS RESTING WITH EYES CLOSED. RN WILL CONTINUE TO MONITOR
--- NOTE | 2020-05-27 04:51 | NUR ---
PATIENT AGAIN CALLED RN INTO ROOM, VERY RESTLESS, THRASHING ABOUT THE BED COMPLAINS OF SEVERE 10/10 PAIN TO ENTIRE ABDOMEN. PRN DILUADID GIVEN AT THIS TIME, WILL MONITOR
--- NOTE | 2020-05-27 05:00 | NUR ---
PAIN MEDICATION SEEMS EFFECTIVE, PATIENT IS NOW SNORING AND IS NO LONGER GRIMACING.
--- NOTE | 2020-05-27 05:14 | NUR ---
RESPIRATORY PAGED FOR PRN BREATHING TREATMENT
[2020-05-27 06:04] LABS: HEMATOCRIT 34.5 % (42.0-52.0); MEAN CELL VOLUME 84.1 fl (80.0-94.0); MEAN CORPUSCULAR HGB 26.8 pg (27.0-31.0); MEAN CORPUSCULAR HGB CONC 31.9 g/dl (33.0-37.0); MEAN PLATELET VOLUME 9.8 fl (9.6-12.3); PLATELET COUNT AUTOMATED 286 10*3/uL (130-400); RED CELL DISTRI WIDTH 14.9 % (0-14.5); WHITE BLOOD COUNT 15.1 10*3/uL (4.8-10.8)
[2020-05-27 06:20] LABS: ALBUMIN 2.1 gm/dl (3.1-4.5); CREATININE 3.35 mg/dL (0.70-1.30); POTASSIUM 4.2 mmol/L (3.5-5.1); TOTAL PROTEIN 7.3 gm/dL (6.4-8.2)
[2020-05-27 06:40] LABS: BASOPHILS 1 % (0-1); TOTAL CELLS COUNTED 100 #CELLS
[2020-05-27 06:42] LABS: PLATELET SUFFICIENCY NORMAL (NORMAL); ROULEAUX SLIGHT
--- NOTE | 2020-05-27 07:21 | NUR ---
Shift chart check completed.24 HR chart check completed.
--- NOTE | 2020-05-27 07:31 | NUR ---
DILAUDID 1MG IV SLOWLY FOR C/O CONTINUOUS ABDOMINAL PAIN "8 OR 9"/10. " SOON THE TWO HOURS ARE UP IT'S BACK. IN FACT IT'S NOT EVEN TAKING TWO HOURS". HIS RESPIRATIONS ARE RAPID AND SHALLOW. IV FLUIDS CONTINUE AT 150/HR. ABDOMEN OBESE WITH PERISTALSIS HEARD RT QUADRANT MORE THAN LEFT. NO PERIPHERAL EDEMA.
--- NOTE | 2020-05-27 08:30 | NUR ---
EARLIER DILAUDID "HELPING". FACE MORE RELAXED, LESS RESTLESS.
--- NOTE | 2020-05-27 09:32 | NUR ---
DR BROWN IN TO SEE PATIENT.
--- NOTE | 2020-05-27 09:54 | NUR ---
IV DILAUDID 1MG SLOWLY FOR ABDOMINAL PAIN. PT CRYING, RESTLESS AT THE TIME.
--- NOTE | 2020-05-27 10:48 | NUR ---
NEW IV SITE OBTAINED IN RT FOREARM, USING ULTRASOUND FOR GUIDANCE, WITH A #18 ACCUCATH, AFTER ONE UNSUCCESSFUL ATTEMPT WITH ANOTHER ACCUCATH.
--- NOTE | 2020-05-27 10:50 | NUR ---
EARLIER DILAUDID EFFECTIVE TO LESSEN ABDOMINAL PAIN. PT HAS BEEN OFFERED ASSIST TO BATHE BUT HE DECLINES AT PRESENT. MOTHER AT BEDSIDE.
--- NOTE | 2020-05-27 11:17 | NUR ---
CALLIE, AT [facility], TOOK INFORMATION ON NEW CONSULT.
--- NOTE | 2020-05-27 11:23 | NUR ---
DR VIVEROS RETURNED CALL. REVIEWED LABS, VITALS, I AND O'S. ORDERS RECEIVED.
--- NOTE | 2020-05-27 12:23 | NUR ---
MEDICATED PT PER PRN ORDER WITH DILAUDID FOR C/O ABD. PAIN THAT RATES 10/10 ON PAIN SCALE.
--- NOTE | 2020-05-27 13:20 | NUR ---
SLEEPING SOUNDLY WITH APPARENT RELIEF FROM DILAUDID.
--- NOTE | 2020-05-27 14:43 | NUR ---
PATIENT CRYING WITH ABDOMINAL PAIN. MEDICATED WITH DILAUDID 1MG IV SLOWLY FOR PAIN.
--- NOTE | 2020-05-27 15:40 | NUR ---
EARLIER DILAUDID EFFECTIVE.
--- NOTE | 2020-05-27 15:44 | NUR ---
DR VIVEROS HERE TO SEE PATIENT.
[2020-05-27 16:43] LABS: ALBUMIN 2.4 gm/dl (3.1-4.5); CREATININE 4.11 mg/dL (0.70-1.30); POTASSIUM 4.2 mmol/L (3.5-5.1); TOTAL PROTEIN 7.3 gm/dL (6.4-8.2)
--- NOTE | 2020-05-27 17:05 | NUR ---
DR VIVEROS, NEPHROLOGY MADE OF AWARE OF 4PM CHEMISTRY LABS. NO NEW ORDERS.
--- NOTE | 2020-05-27 17:14 | NUR ---
DR KHAN NOTIFIED OF 4PM CHEMISTRY LABS ALSO. NO NEW ORDERS.
--- NOTE | 2020-05-27 17:24 | NUR ---
MONITOR SHOWS PT OFF MONITOR. PT IN BATHROOM WITH DOOR LOCKED. PATIENT CAME OUT AND SAID "I JUST POOPED FOR THE FIRST TIME SINCE ABOUT THURSDAY." HE INDICATED AND GESTURED THAT THE STOOL WAS "VERY HARD" AND HE HELD HIS HANDS UP THAT IT WAS ABOUT 18 INCHES LONG. I DID NOT VIEW THIS STOOL. HE ALSO VOIDED ANOTHER 250ML OF URINE. I ASKED IF IT MADE HIS BELLY FEEL ANY BETTER OR WORSE AND HE SAID "JUST LIGHTHEADED". BP 155/83.
--- NOTE | 2020-05-27 17:52 | NUR ---
IV DILAUDID SLOWLY FOR ABDOMINAL PAIN "MAYBE A 7"/10. HE MENTIONED MAYBE NEEDING TO MOVE HIS BOWELS AGAIN. REQUESTED THAT HE NOT DETACH THE MONITOR AND USE THE BSC INSTEAD OF GOING INTO THE BATHROOM AND LOCKING THE DOOR AGAIN.
--- NOTE | 2020-05-27 18:26 | NUR ---
DILAUDID EFFECTIVE TO ALLOW PATIENT TO LIE BACK IN BED, WITH DEEP, EASY RESPIRATIONS AND RELAXED FACE.
--- NOTE | 2020-05-27 20:18 | NUR ---
PT. RESTING IN BED, RESTLESS AT TIMES PRIOR TO DILAUDID ADMINISTRATION. ASKING FOR DILAUDID PRIOR TO DUE TIME. MEDICATED WITH DILAUDID AT 1959, PT. CURRENTLY SLEEPING, DILAUDID EFFECTIVE FOR PAIN. LUNGS CLEAR BUT DIMINSHED BILAT, PULSE OX 100% ON RA. ABDOMEN SOFTLY DISTENDED, NORMO, MORBIDLY OBESE. NO PERIPHERAL EDEMA NOTED. PT. STATES PAIN IS BETTER THAN WHEN HE WAS FIRST ADMITTED BUT STILL HURTS "ALOT". ICE CHIPS GIVEN ORDERED, PT. TOLERATING WELL. ACCUCATH IN RA ASYMPT.
--- NOTE | 2020-05-27 22:14 | NUR ---
DILAUDID GIVEN AT 2206 PER PT. REQUEST OF 2145 (TOO EARLY AT THAT TIME). PT. CURRENTLY SLEEPING, DILAUDID EFFECTIVE. TONO STOKES RN
--- NOTE | 2020-05-27 23:50 | NUR ---
PT PLACED ON CPAP OF 18. PT APPEARS TO BE ONEYDA CPAP WELL. ALARMS REMAIN AUDIBLE. NO RES DISTRESS OR SOB NOTED AT THIS TIME.
[2020-05-28] VITALS: BP 124/51
--- NOTE | 2020-05-28 01:37 | NUR ---
PT. INCONTINENT OF BM. BED LINENS CHANGED AND PT. GIVEN DILAUDID ORDERED PER PT REQUEST UPON RETURNING TO BED FROM BSC. TONO STOKES RN
--- NOTE | 2020-05-28 02:04 | NUR ---
PT. SLEEPING, DILAUDID EFFECTIVE FOR PAIN.
[2020-05-28 04:00] VITALS: BP 119/48
--- NOTE | 2020-05-28 05:54 | NUR ---
PT. WORE CPAP MOST OF NIGHT DUE TO MUCH ENCOURAGEMENT. EXPLAINED TO PATIENT HE HAS SLEEP APNEA AND GETS DILAUDID EVERY 2 HRS FOR WHICH HE SLEEPS AND IS DROWSY CONSTANTLY. PT. MUCH MORE AWAKE BETWEEN DILAUDID DOSES. TONO STOKES RN
--- NOTE | 2020-05-28 06:18 | NUR ---
PT. GIVEN DILAUDID ORDERED PER PT REQUEST.
[2020-05-28 06:26] LABS: ALBUMIN 2.2 gm/dl (3.1-4.5); CREATININE 4.83 mg/dL (0.70-1.30); POTASSIUM 4.2 mmol/L (3.5-5.1); TOTAL PROTEIN 7.7 gm/dL (6.4-8.2)
[2020-05-28 06:29] LABS: BASO # 0.1 10*3/uL (0.0-0.1); BASO % 0.5 % (0.0-1.0); EOS # 0.1 10*3/uL (0.0-0.4); EOS % 0.7 % (1.0-4.0); HEMATOCRIT 33.9 % (42.0-52.0); LYMPH # 1.5 10*3/uL (1.3-4.4); MEAN CELL VOLUME 83.7 fl (80.0-94.0); MEAN CORPUSCULAR HGB 26.4 pg (27.0-31.0); MEAN CORPUSCULAR HGB CONC 31.6 g/dl (33.0-37.0); MEAN PLATELET VOLUME 9.8 fl (9.6-12.3); MONO # 1.1 10*3/uL (0.1-1.0); MONO % 7.4 % (3.0-9.0); NEUT % 79.9 % (47.0-73.0); PLATELET COUNT AUTOMATED 330 10*3/uL (130-400); RED BLOOD COUNT 4.05 10*6/uL (4.50-5.90); RED CELL DISTRI WIDTH 14.8 % (0-14.5)
--- NOTE | 2020-05-28 06:41 | NUR ---
PT. SLEEPING, DILAUDID EFFECTIVE. TONO STOKES RN
[2020-05-28 08:00] VITALS: BP 121/46
--- NOTE | 2020-05-28 08:41 | NUR ---
Awake and alert. Voiced concerns over leg numbnuss. discussed neuropathy and phycician discussion was advised.
--- NOTE | 2020-05-28 09:43 | NUR ---
Asked if pain med was due yet, informed it was, states pain scale of 0/10 . states is not having any pain , just wants to go to sleep for awhile. Dilaudid given.
--- NOTE | 2020-05-28 09:44 | NUR ---
Dr. Heart in.
--- NOTE | 2020-05-28 09:53 | NUR ---
Podiatry was notified of consult[facility]
--- NOTE | 2020-05-28 09:53 | NUR ---
Dilaudid effective to promote rest. Lying in bed w/ eyes closed.
--- NOTE | 2020-05-28 11:50 | NUR ---
Asked if pain med was due. Informed it was. Then stated he was going to lay down awhile. Med given.
[2020-05-28 11:56] VITALS: BP 146/77
--- NOTE | 2020-05-28 15:17 | NUR ---
1456 mEDICATED FOR C/O PAIN 3/10 LEFT SIDE. Effective w/i minutes. mother in to visit.
[2020-05-28 16:00] VITALS: BP 141/82
--- NOTE | 2020-05-28 17:31 | NUR ---
PT MEDICATED WITH DILAUDID 1MG IV AT THIS REQUEST FOR C/O BACK PAIN.
--- NOTE | 2020-05-28 18:09 | NUR ---
PT STATED DILAUDID WAS EFFECTIVE IN EASING HIS BACK PAIN.
--- NOTE | 2020-05-28 19:30 | NUR ---
Pt resting on V30 BiPap on room air. Spo2 94%
[2020-05-28 20:00] VITALS: BP 161/97
--- NOTE | 2020-05-28 21:03 | NUR ---
PT. RESTING IN BED. COMPLAINTS OF ABD DISCOMFORT, REQUESTING PAIN MED, DILAUDID GIVEN ORDERED AT 194. PT. CURRENTLY SLEEPING, DILAUDID EFFECTIVE. PT. WEARING CPAP WHILE SLEEPING. HEP LOCK IN RA ASYMPT. LUNGS DIMINISHED BILAT, PULSE OX 100% ON RA. ABDOMEN SOFTLY DISTENDED, MORBIDLY OBESE. NO PERIPHERAL EDEMA NOTED. RESP. EASY AND REG, NO DISTRESS. TONO STOKES, RN
--- NOTE | 2020-05-28 22:18 | NUR ---
PT. GIVEN DILAUDID AT 2207 FOR BACK PAIN #4 ON 1-10 PAIN SCALE, CURRENTLY SLEEPING, DILAUDID EFFECTIVE FOR PAIN. TONO STOKES RN
--- NOTE | 2020-05-28 23:05 | NUR ---
Pt still on V30 Bipap on room air. SpO2 97%
[2020-05-29] VITALS: BP 149/78
--- NOTE | 2020-05-29 00:29 | NUR ---
PT. GIVEN DILAUDID AT 0025 FOR COMPLAINTS OF LEFT SIDE PAIN #3 ON 1-10 PAIN SCALE. PT. AWAKENS AND ASKS FOR PAIN MEDS IMMEDIATELY. TONO STOKES RN
--- NOTE | 2020-05-29 03:23 | NUR ---
Pt is off BiPap at this time asking for more pain medicine. Pt places himself on and off the V30 BiPap machine. Room air SpO2 95%
--- NOTE | 2020-05-29 03:32 | NUR ---
PT. MOANING IN PAIN. STATES BACK PAIN #6 ON 1-10 PAIN SCALE. DILAUDID GIVEN ORDERED, PT. SLEEPING, BEFORE ENTIRE IVP COMPLETE.
[2020-05-29 04:00] VITALS: BP 142/87
--- NOTE | 2020-05-29 05:22 | NUR ---
A 24, admitted to [facility], under the services of IVETT Bone DO with a diagnosis of ALCOHOL W/D. Chief complaint is ALCOHOL W/D. Patient arrived via stretcher from ER. Monitor applied. Initial assessment completed. Vital signs taken and recorded. IVETT BONE DO notified of admission to the unit. Orders received. See assessment for past medical history, medications and allergies. Patient and/or family oriented to unit. [facility] visitation policy reviewed. Clothing/patient valuable form completed. TONO STOKES
[2020-05-29 05:43] LABS: ALBUMIN 2.1 gm/dl (3.1-4.5); CREATININE 4.26 mg/dL (0.70-1.30); POTASSIUM 3.9 mmol/L (3.5-5.1); TOTAL PROTEIN 7.2 gm/dL (6.4-8.2)
[2020-05-29 06:13] LABS: HEMATOCRIT 33.4 % (42.0-52.0); MEAN CELL VOLUME 83.5 fl (80.0-94.0); MEAN CORPUSCULAR HGB 26.5 pg (27.0-31.0); MEAN CORPUSCULAR HGB CONC 31.7 g/dl (33.0-37.0); MEAN PLATELET VOLUME 9.7 fl (9.6-12.3); PLATELET COUNT AUTOMATED 324 10*3/uL (130-400); WHITE BLOOD COUNT 14.3 10*3/uL (4.8-10.8)
--- NOTE | 2020-05-29 06:29 | NUR ---
Dressing change to right medial and right lateral saldana per physician orders. Patient tolerate dressing changes without diffcuilty. Call light within reach and bed in low position. Patient has red blanchable area noted to bridge of nose at time of assessment. Patient states he believe it is getting sore from his breathing machine. Apply sureprep to bridge of nose and allow time to dry. Will notify respiratory regarding red blanchable area.
--- NOTE | 2020-05-29 06:33 | NUR ---
Spoke with Earnestine regarding area to bridge of nose that is red and blanchable and please make sure that gel is appilied prior to cpap usage she states she will pass it on.
--- NOTE | 2020-05-29 06:43 | NUR ---
DILAUDID GIVEN ORDERED AT 0638. PT. CURRENTLY SLEEPING, DILAUDID EFFECTIVE. TONO STOKES RN
[2020-05-29 07:09] LABS: TOTAL CELLS COUNTED 100 #CELLS
[2020-05-29 07:10] LABS: PLATELET SUFFICIENCY NORMAL (NORMAL)
[2020-05-29 08:00] VITALS: BP 131/76
--- NOTE | 2020-05-29 09:00 | NUR ---
patient will return home with family when discharged, no home needs at this time
--- NOTE | 2020-05-29 11:57 | NUR ---
Medicated for c/o headache scale 6/10. up in room.
[2020-05-29 12:00] VITALS: BP 135/85
--- NOTE | 2020-05-29 13:18 | NUR ---
IV DILAUDID 1MG SLOWLY FOR "BACK" PAIN "5"/10.
--- NOTE | 2020-05-29 14:11 | NUR ---
States pain meds was effective for total relief.
[2020-05-29 16:00] VITALS: BP 154/86
--- NOTE | 2020-05-29 19:00 | NUR ---
REPORT RECEIVED FROM CAROLINE MONSALVE. PT LYING IN BED AT THIS TIME WATCHING TV. NO S/S OF DISTRESS NOTED. CALL LIGHT IN REACH
--- NOTE | 2020-05-29 19:42 | NUR ---
PT GROANING IN PAIN. STATES 10/10 IN LOWER BACK. MEDICATED WITH DILAUDID PER ORDER. WILL MONITOR EFFECTIVENESS.
[2020-05-29 20:00] VITALS: BP 168/87
--- NOTE | 2020-05-29 20:33 | NUR ---
DILAUDID APPEARS EFFECTIVE. PT SLEEPING AT THIS TIME. CALL LIGHT IN REACH
--- NOTE | 2020-05-29 22:30 | NUR ---
PT WANTING DILAUDID AT THIS TIME FOR BACK PAIN. STATES "I WAS GETTING IT EVERY 2 HOURS DOWNSTAIRS" PT EDUCATED THAT THE PHYSICIAN CHANGED THE ORDER TO EVERY 6 HOURS. PT STATES "OH NO, YOU HAVE GOT TO DO SOMETHING ABOUT THIS" TOLD HIM I WOULD CALL THE DOCTOR. PT LYING IN BED PLAYING ON CELL PHONE AT THIS TIME.
--- NOTE | 2020-05-29 22:40 | NUR ---
DR. COATS NOTIFIED OF PT REQUEST FOR DILAUDID Q2H. NO NEW ORDERS AT THIS TIME.
--- NOTE | 2020-05-29 23:35 | NUR ---
PT CURRENTLY OFF NIV FOR A BREAK, PUTTING BACK ON
[2020-05-30] VITALS: BP 160/90
--- NOTE | 2020-05-30 00:55 | NUR ---
PT REQUESTING DILAUDID AT THIS TIME. PT EDUCATED HE COULD NOT HAVE IT AT THIS TIME. PT OFFERED TYLENOL, PT REFUSED. PT OFFERED AN ICE PACK OR HEATED BLANKET FOR BACK. PT REFUSED. ASKED PT IF HE'D RATHER SLEEP IN RECLINER, PT REFUSED. STATED THAT THE DOC WOULD BE NOTIFIED.
--- NOTE | 2020-05-30 00:59 | NUR ---
DR. COATS NOTIFIED OF PT PERSISTANT REQUEST FOR DILAUDID. DR. COATS STATED HE WOULD PUT SOMETHING IN.
--- NOTE | 2020-05-30 01:36 | NUR ---
LIDOCAINE GIVEN NOW PER ORDER BY DR. COATS FOR PT PERSISTANT BACK PAIN. WILL MONITOR EFFECTIVENESS.
--- NOTE | 2020-05-30 02:10 | NUR ---
PT STATES "THE PATCH ISNT DOING CRAP, I NEED THAT PAIN SHOT" DILAUDID GIVEN PER ORDER FOR PAIN. PT SLEEPING BEFORE NURSE FINISHED IVP MEDICATION.
--- NOTE | 2020-05-30 02:57 | NUR ---
DILAUDID APPEARS EFFECTIVE. PT SLEEPING.
--- NOTE | 2020-05-30 04:45 | NUR ---
PT SLEEPING AT THIS TIME. CPAP IN PLACE. CALL LIGHT IN REACH
--- NOTE | 2020-05-30 06:26 | NUR ---
PT MEDICATED WITH PO TYLENOL FOR C/O PAIN IN ABDOMEN RATED 4/10. WILL MONITOR. CALL LIGHT IN REACH.
[2020-05-30 07:06] LABS: HEMATOCRIT 33.8 % (42.0-52.0); MEAN CELL VOLUME 82.2 fl (80.0-94.0); MEAN CORPUSCULAR HGB 26.5 pg (27.0-31.0); MEAN CORPUSCULAR HGB CONC 32.2 g/dl (33.0-37.0); MEAN PLATELET VOLUME 9.3 fl (9.6-12.3); PLATELET COUNT AUTOMATED 334 10*3/uL (130-400); RED BLOOD COUNT 4.11 10*6/uL (4.50-5.90); RED CELL DISTRI WIDTH 14.6 % (0-14.5); WHITE BLOOD COUNT 14.7 10*3/uL (4.8-10.8)
[2020-05-30 07:35] LABS: ALBUMIN 2.3 gm/dl (3.1-4.5); CREATININE 2.67 mg/dL (0.70-1.30); POTASSIUM 3.3 mmol/L (3.5-5.1); TOTAL PROTEIN 7.8 gm/dL (6.4-8.2)
[2020-05-30 07:40] LABS: PLASMA CELL 1 % (0-0); PLATELET SUFFICIENCY NORMAL (NORMAL); TOTAL CELLS COUNTED 100 #CELLS
[2020-05-30 08:00] VITALS: BP 168/82
--- NOTE | 2020-05-30 08:05 | NUR ---
PT REQUESTED AND WAS MEDICATED WITH DILAUDID FOR C/O GENEALIZED ABODMINAL AND BACK PAIN. RESP EASY AND NONLABORED ON RA. CALL LIGHT IN REACH. WILL MONITOR
--- NOTE | 2020-05-30 09:00 | NUR ---
case management visits with patient, he states he will return home when discharged and denies any home needs, case management will follow
--- NOTE | 2020-05-30 09:00 | NUR ---
MEDICATION EFFECTIVE, PT SLEEPING. CPAP IN USE. CALL LIGHT IN REACH. WILL MONITOR.
[2020-05-30] MEDS ORDERED: LANTUS SOL100 UNIT/1 SQ (11:29)
[2020-05-30] MEDS ORDERED: Humalog SQ (11:29)
[2020-05-30] MEDS ORDERED: LOPRESSOR25 MG PO (11:30)
[2020-05-30] MEDS ORDERED: FENOFIBRATE130 M1 PO (11:41)
[2020-05-30 12:00] VITALS: BP 160/93
--- NOTE | 2020-05-30 12:15 | NUR ---
PT REFUSED DISCHARGE WOUND PHOTO.
--- NOTE | 2020-05-30 12:30 | NUR ---
Discharge instructions reviewed with patient/family. Patient receptive and verbalizes understanding. Follow-up care arranged. Written instructions given to patient/family. CLAUDIA PAREDES
== END 2020-05-30 13:25 | disposition home or self-care (01) | DRG 438 ==
LOC: ED 10:17 → 5E 11:45 → EDHOLD 11:45 → ICCU 11:45 → 5E 11:45 → ICCU 05-26 15:48 → 5E 05-29 17:36
PROVIDERS: Emergency Medicine; Family Medicine; Hospitalist; Internal Medicine; ADMIT Emergency Medicine
PROC: 5A09357 Assistance with Respiratory Ventilation, Less than 24 Consecutive Hours, Continuous Positive Airway Pressure (ICD-10-PCS; principal; 2020-05-27)
PROC: 5A09357 Assistance with Respiratory Ventilation, Less than 24 Consecutive Hours, Continuous Positive Airway Pressure (ICD-10-PCS; 2020-05-28)
PROC: 5A09357 Assistance with Respiratory Ventilation, Less than 24 Consecutive Hours, Continuous Positive Airway Pressure (ICD-10-PCS; 2020-05-29)
DX: K85.90 Acute pancreatitis without necrosis or infection, unspecified (principal); N17.0 Acute kidney failure with tubular necrosis; R65.10 Systemic inflammatory response syndrome (SIRS) of non-infectious origin without acute organ dysfunction; N39.0 Urinary tract infection, site not specified; E87.2 Acidosis; E11.65 Type 2 diabetes mellitus with hyperglycemia; I10 Essential (primary) hypertension; R16.2 Hepatomegaly with splenomegaly, not elsewhere classified; E87.8 Other disorders of electrolyte and fluid balance, not elsewhere classified; E87.6 Hypokalemia; E78.1 Pure hyperglyceridemia; G47.33 Obstructive sleep apnea (adult) (pediatric); E66.01 Morbid (severe) obesity due to excess calories; B95.1 Streptococcus, group B, as the cause of diseases classified elsewhere; F32.9 Major depressive disorder, single episode, unspecified; D50.9 Iron deficiency anemia, unspecified; K21.9 Gastro-esophageal reflux disease without esophagitis; K76.0 Fatty (change of) liver, not elsewhere classified; Z79.4 Long term (current) use of insulin; Z91.5 Personal history of self-harm; Z82.49 Family history of ischemic heart disease and other diseases of the circulatory system; Z83.3 Family history of diabetes mellitus; Z79.899 Other long term (current) drug therapy

== ENCOUNTER → 2020-06-06 | Outpatient (CLI) | payer OTHER ==
[~2020-06-06] MED LIST changes: +FENOFIBRATE130 M1 PO; +Humalog SQ; +LANTUS SOL100 UNIT/1 SQ; +LISINOPRIL20 MG PO; +LOPRESSOR25 MG PO
[2020-06-06 10:57] LABS: BUN 17 mg/dl (7-24); CHLORIDE 106 mmol/L (98-107); CREATININE 1.44 mg/dL (0.70-1.30); POTASSIUM 3.7 mmol/L (3.5-5.1); SODIUM 138 mmol/L (136-145)
== END | disposition home or self-care (01) ==
LOC: LAB 10:08
PROVIDERS: Family Medicine
DX: N17.9 Acute kidney failure, unspecified (principal)

== ENCOUNTER → 2020-08-09 | Outpatient (CLI) | payer OTHER ==
[2020-08-09 09:41] LABS: BUN 15 mg/dl (7-24); CHLORIDE 109 mmol/L (98-107); CREATININE 1.07 mg/dL (0.70-1.30); POTASSIUM 3.7 mmol/L (3.5-5.1); SODIUM 141 mmol/L (136-145)
[2020-08-12 14:07] LABS: GLUTAMIC ACID DECARB AB <5.0 U/mL (0.0-5.0)
== END | disposition home or self-care (01) ==
LOC: LAB 08:42
PROVIDERS: ATTEND Internal Medicine Endocrinology, Diabetes & Metabolism
DX: E11.65 Type 2 diabetes mellitus with hyperglycemia (principal)

== ENCOUNTER 2020-12-03 08:37 | Inpatient (IN) | payer OTHER ==
[~2020-12-03] VITALS: Wt 172.4 kg
[2020-12-03 08:41] VITALS: BP 180/122
[2020-12-03 09:18] LABS: BASO % 0.3 % (0.0-1.0); EOS # 0.2 10*3/uL (0.0-0.4); EOS % 1.9 % (1.0-4.0); HEMATOCRIT 45.2 % (42.0-52.0); LYMPH # 2.3 10*3/uL (1.3-4.4); LYMPH % 19.4 % (27.0-41.0); MEAN CELL VOLUME 80.1 fl (80.0-94.0); MEAN CORPUSCULAR HGB 25.5 pg (27.0-31.0); MEAN CORPUSCULAR HGB CONC 31.9 g/dl (33.0-37.0); MEAN PLATELET VOLUME 8.6 fl (9.6-12.3); MONO # 0.6 10*3/uL (0.1-1.0); MONO % 5.2 % (3.0-9.0); NEUT # 8.8 10*3/uL (2.3-7.9); NEUT % 72.5 % (47.0-73.0); PLATELET COUNT AUTOMATED 418 10*3/uL (130-400); RED BLOOD COUNT 5.64 10*6/uL (4.50-5.90); WHITE BLOOD COUNT 12.1 10*3/uL (4.8-10.8)
[2020-12-03 09:33] LABS: ALBUMIN 3.8 gm/dl (3.1-4.5); ALKALINE PHOSPHATASE 85 U/L (45-117); BUN 12 mg/dl (7-24); CHLORIDE 105 mmol/L (98-107); LIPASE 89 U/L (73-393); SGOT/AST 21 IU/L (3-35); SGPT/ALT 49 U/L (12-78); SODIUM 138 mmol/L (136-145); TOTAL PROTEIN 8.6 gm/dL (6.4-8.2)
--- NOTE | 2020-12-03 11:53 | NUR ---
MEDICATED PT, SEE EMAR. PT DENIES ANY C/O AT THIS TIME, SIDE RAILS UP X2, CALL LIGHT WITHIN REACH, BED IN LOW. WILL CONTINUE TO MONITOR.
[2020-12-03 12:12] VITALS: BP 140/81
--- NOTE | 2020-12-03 12:33 | NUR ---
PT IS TO BE NPO STARTING AT THIS TIME. PT STATED TO ME THAT HE HASN'T ATE OR DRANK ANYTHING SINCE LAST NIGHT.
--- NOTE | 2020-12-03 12:45 | NUR ---
PATIENT WANTING TO SIGN OUT AMA. STATES THAT HE FEELS BETTER AND DOES NOT WANT TO BE ADMITTED. PT EXPLAINED THE IMPORTANCE OF ADMISSION. CONTINUES TO WANT TO LEAVE. MADE AWARE.
== END 2020-12-03 12:45 | disposition left against medical advice (07) | DRG 440 ==
LOC: ED 08:37 → EDHOLD 11:33
PROVIDERS: Emergency Medicine; ADMIT Student in an Organized Health Care Education/Training Program; ATTEND Student in an Organized Health Care Education/Training Program
DX: K85.90 Acute pancreatitis without necrosis or infection, unspecified (principal); Z82.49 Family history of ischemic heart disease and other diseases of the circulatory system; Z83.3 Family history of diabetes mellitus

== ENCOUNTER 2022-02-12 06:32 | Inpatient (IN) | payer SELFPAY ==
[~2022-02-12] VITALS: Ht 203 cm; Wt 172.4 kg
[2022-02-12] VITALS (8 sets, daily range): BP systolic 146–187; BP diastolic 83–100
[2022-02-12 07:05] LABS: HEMATOCRIT 40.2 % (42.0-52.0); MEAN CELL VOLUME 78.2 fl (80.0-94.0); PLATELET COUNT AUTOMATED 380 10*3/uL (130-400); RED BLOOD COUNT 5.14 10*6/uL (4.50-5.90); RED CELL DISTRI WIDTH 14.3 % (0-14.5); WHITE BLOOD COUNT 9.7 10*3/uL (4.8-10.8)
[2022-02-12 07:38] LABS: MANUAL DIFF REFLEX YES; MEAN CORPUSCULAR HGB 25.3 pg (27.0-31.0); MEAN CORPUSCULAR HGB CONC 32.3 g/dl (33.0-37.0); MEAN PLATELET VOLUME 8.5 fl (9.6-12.3)
[2022-02-12 07:41] LABS: ALKALINE PHOSPHATASE 102 U/L (45-117); BUN 10 mg/dl (7-24); CHLORIDE 102 mmol/L (98-107); CREATININE 1.03 mg/dL (0.70-1.30); LIPASE 1077 U/L (73-393); POTASSIUM 3.9 mmol/L (3.5-5.1); SGOT/AST 30 IU/L (3-35); SGPT/ALT 32 U/L (12-78); SODIUM 135 mmol/L (136-145); TOTAL PROTEIN 8.2 gm/dL (6.4-8.2)
[2022-02-12 07:44] LABS: BASOPHILS 1 % (0-1); PLATELET SUFFICIENCY NORMAL (NORMAL); TOTAL CELLS COUNTED 100 #CELLS
[2022-02-12 08:30] LABS: BILIRUBIN Negative (Negative); BLOOD Trace-Lysed (Negative); CLARITY Clear (Clear); COLOR Yellow (Yellow); GLUCOSE 3+ (Negative); KETONE Trace (Negative); LEUKO ESTERASE Negative (Negative); NITRITE Negative (Negative); PH 5.5 (4.5-8.0); SPECIFIC GRAVITY >= 1.030 (1.001-1.030)
[2022-02-12 08:41] LABS: MUCOUS 1+
[2022-02-12] MEDS ORDERED: ZESTRIL10 MG PO (15:17)
[2022-02-12] MEDS ORDERED: JARDIANCE25 MG PO (15:18)
[2022-02-12] MEDS ORDERED: RYBELSUS7 MG PO (15:19)
[2022-02-13] VITALS: BP 147/79
[2022-02-13 05:58] LABS: CHOLESTEROL 233 mg/dL (<200)
[2022-02-13 06:08] LABS: BASO # 0.1 10*3/uL (0.0-0.1); BASO % 0.3 % (0.0-1.0); EOS # 0.1 10*3/uL (0.0-0.4); EOS % 0.4 % (1.0-4.0); HEMATOCRIT 38.2 % (42.0-52.0); LYMPH % 11.2 % (27.0-41.0); MEAN CORPUSCULAR HGB 27.8 pg (27.0-31.0); MEAN CORPUSCULAR HGB CONC 35.6 g/dl (33.0-37.0); MEAN PLATELET VOLUME 9.1 fl (9.6-12.3); MONO # 1.1 10*3/uL (0.1-1.0); NEUT # 14.7 10*3/uL (2.3-7.9); NEUT % 81.5 % (47.0-73.0); PLATELET COUNT AUTOMATED 379 10*3/uL (130-400); RED CELL DISTRI WIDTH 14.7 % (0-14.5)
[2022-02-13 06:16] LABS: ALKALINE PHOSPHATASE 83 U/L (45-117); BUN 7 mg/dl (7-24); CHLORIDE 105 mmol/L (98-107); CREATININE 0.86 mg/dL (0.70-1.30); LIPASE 740 U/L (73-393); POTASSIUM 3.9 mmol/L (3.5-5.1); SGOT/AST 22 IU/L (3-35); SGPT/ALT 29 U/L (12-78); SODIUM 137 mmol/L (136-145); TOTAL PROTEIN 7.5 gm/dL (6.4-8.2)
[2022-02-13 06:21] LABS: THYROID STIM HORMONE (HS) 0.862 uIU/ml (0.358-4.75)
[2022-02-13 06:39] LABS: TRIGLYCERIDES 1831 mg/dl (<150)
[2022-02-13 06:40] LABS: FREE T4 1.19 ng/dl (0.76-1.46)
[2022-02-13 08:00] VITALS: BP 150/70
[2022-02-13 09:07] LABS: VITAMIN D, 25-HYDROXY 13.7 ng/mL (30-100)
[2022-02-13 12:00] VITALS: BP 144/79
[2022-02-13 15:48] VITALS: BP 138/59
[2022-02-13 20:00] VITALS: BP 139/50
[2022-02-14] VITALS: BP 131/59
[2022-02-14 06:14] LABS: ALKALINE PHOSPHATASE 78 U/L (45-117); BUN 7 mg/dl (7-24); CHLORIDE 103 mmol/L (98-107); CREATININE 0.82 mg/dL (0.70-1.30); POTASSIUM 3.4 mmol/L (3.5-5.1); SGOT/AST 32 IU/L (3-35); SGPT/ALT 30 U/L (12-78); SODIUM 134 mmol/L (136-145); TOTAL PROTEIN 7.3 gm/dL (6.4-8.2)
[2022-02-14 06:24] LABS: LIPASE 259 U/L (73-393)
[2022-02-14 06:42] LABS: BASO # 0.1 10*3/uL (0.0-0.1); BASO % 0.4 % (0.0-1.0); EOS # 0.2 10*3/uL (0.0-0.4); EOS % 0.9 % (1.0-4.0); HEMATOCRIT 36.2 % (42.0-52.0); LYMPH % 11.5 % (27.0-41.0); MEAN CELL VOLUME 80.3 fl (80.0-94.0); MEAN CORPUSCULAR HGB 26.2 pg (27.0-31.0); MEAN CORPUSCULAR HGB CONC 32.6 g/dl (33.0-37.0); MEAN PLATELET VOLUME 9.1 fl (9.6-12.3); MONO % 5.7 % (3.0-9.0); NEUT # 14.2 10*3/uL (2.3-7.9); NEUT % 80.9 % (47.0-73.0); PLATELET COUNT AUTOMATED 278 10*3/uL (130-400); RED BLOOD COUNT 4.51 10*6/uL (4.50-5.90); RED CELL DISTRI WIDTH 14.6 % (0-14.5); WHITE BLOOD COUNT 17.5 10*3/uL (4.8-10.8)
[2022-02-14 08:00] VITALS: BP 156/77
[2022-02-14 12:00] VITALS: BP 133/67
[2022-02-14 16:00] VITALS: BP 162/89
[2022-02-14 20:00] VITALS: BP 134/65
[2022-02-15] VITALS: BP 153/76
[2022-02-15 05:39] LABS: BUN 9 mg/dl (7-24); CHLORIDE 103 mmol/L (98-107); CREATININE 0.81 mg/dL (0.70-1.30); POTASSIUM 3.4 mmol/L (3.5-5.1); SODIUM 134 mmol/L (136-145)
[2022-02-15 06:17] LABS: BASO # 0.1 10*3/uL (0.0-0.1); BASO % 0.5 % (0.0-1.0); EOS # 0.3 10*3/uL (0.0-0.4); EOS % 2.1 % (1.0-4.0); LYMPH # 2.3 10*3/uL (1.3-4.4); LYMPH % 15.5 % (27.0-41.0); MEAN CELL VOLUME 80.1 fl (80.0-94.0); MEAN CORPUSCULAR HGB CONC 32.4 g/dl (33.0-37.0); MEAN PLATELET VOLUME 9.1 fl (9.6-12.3); MONO # 0.8 10*3/uL (0.1-1.0); MONO % 5.5 % (3.0-9.0); NEUT # 11.1 10*3/uL (2.3-7.9); NEUT % 75.6 % (47.0-73.0); PLATELET COUNT AUTOMATED 268 10*3/uL (130-400); RED BLOOD COUNT 4.12 10*6/uL (4.50-5.90); RED CELL DISTRI WIDTH 14.7 % (0-14.5); WHITE BLOOD COUNT 14.6 10*3/uL (4.8-10.8)
[2022-02-15 08:00] VITALS: BP 153/74
[2022-02-15 12:00] VITALS: BP 132/76
[2022-02-15] MEDS ORDERED: VITAMIN D3125 MC1 PO (14:42)
[2022-02-15] MEDS ORDERED: HYDROCODONE-AC1 EAC1 PO (15:24)
[2022-02-15] MEDS ORDERED: VANCOMYCIN HCL125 MG PO (15:24)
== END 2022-02-15 15:54 | disposition home or self-care (01) | DRG 439 ==
LOC: ED 06:32 → EDHOLD 08:05 → 4E 08:05
PROVIDERS: Emergency Medicine; Internal Medicine; Registered Nurse; Student in an Organized Health Care Education/Training Program; ADMIT Internal Medicine; ATTEND Internal Medicine
PROC: 5A09357 Assistance with Respiratory Ventilation, Less than 24 Consecutive Hours, Continuous Positive Airway Pressure (ICD-10-PCS; principal; 2022-02-12)
PROC: 5A09357 Assistance with Respiratory Ventilation, Less than 24 Consecutive Hours, Continuous Positive Airway Pressure (ICD-10-PCS; 2022-02-13)
DX: K85.90 Acute pancreatitis without necrosis or infection, unspecified (principal); E87.1 Hypo-osmolality and hyponatremia; R65.10 Systemic inflammatory response syndrome (SIRS) of non-infectious origin without acute organ dysfunction; E44.0 Moderate protein-calorie malnutrition; A04.72 Enterocolitis due to Clostridium difficile, not specified as recurrent; Z68.41 Body mass index [BMI] 40.0-44.9, adult; I10 Essential (primary) hypertension; E11.65 Type 2 diabetes mellitus with hyperglycemia; K21.9 Gastro-esophageal reflux disease without esophagitis; K76.0 Fatty (change of) liver, not elsewhere classified; D50.9 Iron deficiency anemia, unspecified; F12.90 Cannabis use, unspecified, uncomplicated; E78.1 Pure hyperglyceridemia; E55.9 Vitamin D deficiency, unspecified; Z79.4 Long term (current) use of insulin; Z79.899 Other long term (current) drug therapy

== ENCOUNTER 2023-01-24 10:53 | Emergency (ER) | payer BC ==
[~2023-01-24 10:53] MED LIST changes: +HYDROCODONE-AC1 EAC1 PO; +JARDIANCE25 MG PO; +RYBELSUS7 MG PO; +VANCOMYCIN HCL125 MG PO; +VITAMIN D3125 MC1 PO; +ZESTRIL10 MG PO
[2023-01-24] MEDS ORDERED: LIPITOR10 MG PO (11:25)
[2023-01-24] MEDS ORDERED: METFORMIN HYDR500 MG PO (11:25)
[2023-01-24] MEDS ORDERED: LOSARTAN POTASS25 M1 PO (11:25)
[2023-01-24] MEDS ORDERED: PROZAC40 M1 PO (11:26)
[2023-01-24] MEDS ORDERED: VISTARIL25 MG PO (11:26)
[2023-01-24 11:47] LABS: BASO # 0.1 10*3/uL (0.0-0.1); BASO % 0.7 % (0.0-1.0); EOS # 0.2 10*3/uL (0.0-0.4); EOS % 2.3 % (1.0-4.0); HEMATOCRIT 42.5 % (42.0-52.0); LYMPH # 2.2 10*3/uL (1.3-4.4); MEAN CORPUSCULAR HGB CONC 34.1 g/dl (33.0-37.0); MEAN PLATELET VOLUME 8.8 fl (9.6-12.3); MONO # 0.6 10*3/uL (0.1-1.0); MONO % 5.5 % (3.0-9.0); NEUT # 6.9 10*3/uL (2.3-7.9); NEUT % 68.9 % (47.0-73.0); PLATELET COUNT AUTOMATED 325 10*3/uL (130-400); RED BLOOD COUNT 5.38 10*6/uL (4.50-5.90); RED CELL DISTRI WIDTH 13.8 % (0-14.5)
[2023-01-24 12:09] LABS: ALKALINE PHOSPHATASE 84 U/L (46-116); BUN 9 mg/dl (9-23); CHLORIDE 100 mmol/L (98-107); LIPASE 30 U/L (12-53); POTASSIUM 3.8 mmol/L (3.4-5.1); SGPT/ALT 32 U/L (10-49); TOTAL PROTEIN 5.9 gm/dL (6.0-8.0)
[2023-01-24] MEDS ORDERED: CIPRO500 MG PO (13:29)
[2023-01-24] MEDS ORDERED: PREDNISONE50 MG PO (13:29)
[2023-01-24] MEDS ORDERED: FLAGYL 375375 MG PO (13:29)
== END 2023-01-24 13:58 | disposition home or self-care (01) ==
LOC: ED 10:53
PROVIDERS: Nurse Practitioner Family
DX: K52.9 Noninfective gastroenteritis and colitis, unspecified (principal); R16.2 Hepatomegaly with splenomegaly, not elsewhere classified; I10 Essential (primary) hypertension; F32.A Depression, unspecified; Z98.890 Other specified postprocedural states; F12.90 Cannabis use, unspecified, uncomplicated

== ENCOUNTER → 2023-02-02 | Outpatient (CLI) | payer BC ==
[~2023-02-02] MED LIST changes: +FLAGYL 375375 MG PO; +LIPITOR10 MG PO; +LOSARTAN POTASS25 M1 PO; +METFORMIN HYDR500 MG PO; +PREDNISONE50 MG PO; +PROZAC40 M1 PO; +VISTARIL25 MG PO
== END | disposition home or self-care (01) ==
LOC: LAB 15:44
PROVIDERS: ATTEND Nurse Practitioner
DX: R19.7 Diarrhea, unspecified (principal)

== ENCOUNTER 2023-11-06 03:40 | Emergency (ER) | payer BC ==
[~2023-11-06] VITALS: Ht 187.9 cm; Wt 145.1 kg
[~2023-11-06 03:40] MED LIST changes: +ATORVASTATIN CA20 M1 PO; +GEMFIBROZIL600 MG PO; +LORAZEPAM0.5 M1 PO; +METRONIDAZOLE500 M1 PO; +PAROXETINE HCL10 MG PO; +PROPRANOLOL HCL10 MG PO; +TRAZODONE100 MG PO
[2023-11-06 04:09] LABS: BASO # 0.1 10*3/uL (0.0-0.1); BASO % 0.5 % (0.0-1.0); EOS # 0.2 10*3/uL (0.0-0.4); EOS % 1.6 % (1.0-4.0); HEMATOCRIT 44.2 % (42.0-52.0); LYMPH % 23.9 % (27.0-41.0); MEAN CELL VOLUME 79.2 fl (80.0-94.0); MEAN CORPUSCULAR HGB 26.7 pg (27.0-31.0); MEAN CORPUSCULAR HGB CONC 33.7 g/dl (33.0-37.0); MEAN PLATELET VOLUME 8.7 fl (9.6-12.3); MONO # 0.6 10*3/uL (0.1-1.0); MONO % 4.4 % (3.0-9.0); NEUT # 8.7 10*3/uL (2.3-7.9); NEUT % 68.5 % (47.0-73.0); PLATELET COUNT AUTOMATED 385 10*3/uL (130-400); RED BLOOD COUNT 5.58 10*6/uL (4.50-5.90); RED CELL DISTRI WIDTH 14.2 % (0-14.5); WHITE BLOOD COUNT 12.7 10*3/uL (4.8-10.8)
[2023-11-06 04:20] LABS: ACT PARTIAL THROMBO TIME 27.5 SECONDS (20.0-32.1)
[2023-11-06 04:26] LABS: ALKALINE PHOSPHATASE 86 U/L (46-116); BUN 10 mg/dl (9-23); CHLORIDE 105 mmol/L (98-107); LIPASE 36 U/L (12-53); POTASSIUM 4.6 mmol/L (3.4-5.1); SGPT/ALT 27 U/L (5-49); TOTAL PROTEIN 6.8 gm/dL (6.0-8.0)
[2023-11-06 04:52] LABS: ETHYL ALCOHOL < 3.0 mg/dl (<3)
[2023-11-06 07:54] LABS: BILIRUBIN Negative (Negative); BLOOD Negative (Negative); CLARITY Clear (Clear); COLOR Yellow (Yellow); GLUCOSE 1+ (Negative); KETONE Negative (Negative); LEUKO ESTERASE Negative (Negative); NITRITE Negative (Negative); SPECIFIC GRAVITY >= 1.030 (1.001-1.030); UROBILINOGEN 0.2 E.U./dl (0.0-1.0)
[2023-11-06 07:59] LABS: URINE AMPHETAMINES Negative (1000ng/ml); URINE BARBITURATES Negative (200ng/ml); URINE BENZODIAZEPINES Negative (200ng/ml); URINE CANNABINOIDS (THC) Positive (50ng/ml); URINE COCAINE Negative (300ng/ml); URINE METHADONE Negative (300ng/ml); URINE OPIATES Positive (300ng/ml); URINE PHENCYCLIDINE Negative (25ng/ml)
[2023-11-06 08:05] LABS: BACTERIA TRACE; EPITHELIAL CELLS 0-2; MUCOUS TRACE; RBC 0-2 rbc/hpf (0-2); WBC 0-2 wbc/hpf (0-5)
[2023-11-06] MEDS ORDERED: PEPCID20 MG PO (09:52)
== END 2023-11-06 09:59 | disposition home or self-care (01) ==
LOC: ED 03:40
PROVIDERS: Internal Medicine
DX: K29.00 Acute gastritis without bleeding (principal); R11.2 Nausea with vomiting, unspecified; I10 Essential (primary) hypertension; F32.A Depression, unspecified; Z88.8 Allergy status to other drugs, medicaments and biological substances; Z98.890 Other specified postprocedural states; F12.90 Cannabis use, unspecified, uncomplicated; Z79.899 Other long term (current) drug therapy

== ENCOUNTER 2023-11-09 07:19 | Emergency (ER) | payer BC ==
[~2023-11-09] VITALS: Ht 200.6 cm; Wt 167.8 kg
[~2023-11-09 07:19] MED LIST changes: +PEPCID20 MG PO
[2023-11-09 07:57] LABS: BASO # 0.1 10*3/uL (0.0-0.1); BASO % 0.4 % (0.0-1.0); EOS # 0.8 10*3/uL (0.0-0.4); EOS % 6.5 % (1.0-4.0); HEMATOCRIT 43.6 % (42.0-52.0); LYMPH # 3.2 10*3/uL (1.3-4.4); LYMPH % 25.1 % (27.0-41.0); MEAN CELL VOLUME 79.6 fl (80.0-94.0); MEAN CORPUSCULAR HGB 27.6 pg (27.0-31.0); MEAN CORPUSCULAR HGB CONC 34.6 g/dl (33.0-37.0); MEAN PLATELET VOLUME 8.7 fl (9.6-12.3); MONO # 0.5 10*3/uL (0.1-1.0); MONO % 3.8 % (3.0-9.0); NEUT % 62.8 % (47.0-73.0); PLATELET COUNT AUTOMATED 377 10*3/uL (130-400); RED BLOOD COUNT 5.48 10*6/uL (4.50-5.90); RED CELL DISTRI WIDTH 14.2 % (0-14.5); WHITE BLOOD COUNT 12.8 10*3/uL (4.8-10.8)
[2023-11-09 08:02] LABS: BILIRUBIN Negative (Negative); BLOOD Negative (Negative); CLARITY Clear (Clear); COLOR Yellow (Yellow); GLUCOSE 2+ (Negative); KETONE Negative (Negative); LEUKO ESTERASE Negative (Negative); NITRITE Negative (Negative); SPECIFIC GRAVITY 1.025 (1.001-1.030); UROBILINOGEN 0.2 E.U./dl (0.0-1.0)
[2023-11-09 08:15] LABS: URINE AMPHETAMINES Negative (1000ng/ml); URINE BARBITURATES Negative (200ng/ml); URINE BENZODIAZEPINES Negative (200ng/ml); URINE CANNABINOIDS (THC) Positive (50ng/ml); URINE COCAINE Negative (300ng/ml); URINE METHADONE Negative (300ng/ml); URINE OPIATES Negative (300ng/ml); URINE PHENCYCLIDINE Negative (25ng/ml)
[2023-11-09 08:23] LABS: ALKALINE PHOSPHATASE 84 U/L (46-116); BUN 11 mg/dl (9-23); CHLORIDE 106 mmol/L (98-107); LIPASE 34 U/L (12-53); POTASSIUM 4.3 mmol/L (3.4-5.1); SGPT/ALT 22 U/L (5-49); TOTAL PROTEIN 6.7 gm/dL (6.0-8.0)
[2023-11-09 08:44] LABS: EPITHELIAL CELLS 0-2; RBC 0-2 rbc/hpf (0-2)
[2023-11-09 08:45] LABS: BACTERIA TRACE; WBC 0-2 wbc/hpf (0-5)
[2023-11-09 09:05] LABS: CHOLESTEROL 145 mg/dL (<200); TRIGLYCERIDES 1186 mg/dl (<150)
[2023-11-09] MEDS ORDERED: ONDANSETRON4 MG SL (10:25)
== END 2023-11-09 10:53 | disposition home or self-care (01) ==
LOC: ED 07:19
PROVIDERS: Family Medicine
DX: K76.0 Fatty (change of) liver, not elsewhere classified (principal); E78.1 Pure hyperglyceridemia; R11.2 Nausea with vomiting, unspecified; R19.7 Diarrhea, unspecified; E11.9 Type 2 diabetes mellitus without complications; I10 Essential (primary) hypertension; F17.210 Nicotine dependence, cigarettes, uncomplicated; F32.A Depression, unspecified; Z88.1 Allergy status to other antibiotic agents; Z79.899 Other long term (current) drug therapy; Z98.890 Other specified postprocedural states